=== PATIENT | male | born 1955 | race Caucasian/White ===

== ENCOUNTER 2023-05-07 08:21 | Emergency (ER) | payer OTHER, SELFPAY ==
[2023-05-07 08:38] VITALS: BP 136/73
[2023-05-07 09:08] LABS: Urine Albumin Negative (Neg - Trace); Urine Bilirubin Negative (Negative); Urine Character Clear (Clear); Urine Color Yellow; Urine Glucose Negative (Negative); Urine Ketone Negative (Negative); Urine Leukocyte Negative (Negative); Urine Nitrite Negative (Negative); Urine Occult Blood Negative (Negative); Urine Urobilinogen Negative (Neg - 1+)
[2023-05-07] MEDS: MOTRIN 600 MG PO (11:32)
[2023-05-07] MEDS: LIDOCAINE 4% PATCH 1 PATCH TOPICAL (11:32)
--- NOTE | 2023-05-07 11:43 | ED.GENMED ---
History of Present Illness
General
Chief Complaint: Musculo-Skeletal Complaint
Source: patient and spouse
Time Seen by Provider: 05/07/23 11:01
Travel History
Have you had any contact with someone who has COVID-19?: No
Do you have any symptoms of coronavirus? Fever > 100 degrees, chills, cough, shortness of breath, sore throat, loss of taste or smell, muscle aches, or headache?: No
History of Present Illness
History of Present Illness:
68-year-old male with past medical history of hypertension, hyperlipidemia, diabetes, newly diagnosed metastatic colon cancer (discharged from this hospital on 30 April) presenting to the emergency department for evaluation after he fell down
approximately 2 steps 2 days ago onto the kitchen floor injuring the left posterolateral rib area, has been attempting to deal with pain at home but this morning felt pain was too significant so decided to come to the ER for further evaluation.
Patient has arranged follow-up for his newly diagnosed cancer this coming week and has been taking his oxycodone as prescribed to him upon discharge but states pain still was bothering him. He denies any other injuries including head injury,
headache, extremity related concerns, use of anticoagulants or any other concerns at this time.
Past History
Past History
ED Past Medical History: Cancer, CVA, HTN, Hypercholesterolemia and NIDDM
ED Past Surgical History: Appendectomy, Orthopedic, Tonsilectomy and Other (Bilateral knee arthroscopies in the past )
Social History
Tobacco: Other (Occasional cigar smoker)
Alcohol: Occasional
Drug: None
Personal:
Living: with family
Employment: Employed
Family History
Family History: Early CAD (Patient's father and mother both of coronary artery disease ); Negative Diabetes, Hypertension, Asthma, Cancer or Sudden
Review of Systems
Review of Systems
All Other Systems: ROS reviewed and negative except as documented in HPI and ROS
Phy Exam
Physical Exam
Physical Exam:
GENERAL: Alert , in no apparent distress at rest but appears uncomfortable with any attempted movement
Head: Normocephalic atraumatic
EYE: Clear conjunctiva
NECK: Supple
ENT: o/p clr, mmm.
CARDIAC: Regular rate and rhythm .
LUNGS: Clear breath sounds bilaterally, no acute respiratory distress, no wheezes/rales/rhonchi
ABDOMEN: Soft, without focal tenderness, no r/g, no cvat, stating he feels pain within the lower portion of his abdomen however no focal tenderness
Back: Patient does have pretty significant amount of tenderness around the eighth and ninth posterolateral rib area but without any overlying ecchymosis or breaks in the skin
NEUROLOGICAL: Alert and oriented
SKIN: Warm and dry, skin intact.
MUSCULOSKELETAL: well perfused.
PSYCH: Normal and appropriate interaction.
Scores
Heart Failure Risk
Heart Failure Risk Score: Not Applicable
Heart Score for Chest Pain Patients
STEMI patient?: Not applicable
Withdrawal Assessment of Alcohol
Withdrawal Assessment Completed?: Not applicable
Course
Orders/Labs/Results
Orders:
Orders
05/07/23 08:46
Urinalysis Reflex To Culture Urgent
Date Specimen was Collected: 05/07/23
Time Specimen was Collected: 08:42
05/07/23 11:17
Ibuprofen [Motrin] 600 mg PO NOW STA
Lidocaine [Lidocaine 4% Patch] 1 patch TOPICAL NOW STA
CR Ribs-left 3 Vw W/pa Chest Urgent
Comment:
Reason For Exam: fall 2 days ago, posterior rib pain around 8-10
05/07/23 12:14
CT Chest/abd/pel W Iv Cont Urgent
Reason For Exam: fall, left rib pain, multiple fx on XR
05/07/23 13:41
Basic Metabolic Panel Urgent
Complete Blood Count/With Diff Urgent
05/07/23 14:00
Morphine Sulfate 4 mg IV NOW STA
05/07/23 15:06
Morphine Sulfate 2 mg IV NOW STA
Abnormal Lab Results
05/07/23
13:41
RBC 4.02 L 10^6/uL
(4.70-6.10)
Hgb 9.0 L g/dL
(13.0-18.0)
Hct 27.9 L %
(39.0-52.0)
MCV 69.4 L fL
(80.0-94.0)
MCH 22.4 L pg
(27.0-31.0)
MCHC 32.3 L g/dL
(33.0-37.0)
RDW 19.8 H %
(11.5-14.5)
Abs Immat Gran (auto) 0.1 H 10^3/uL
(0-0.05)
Absolute Neuts (auto) 7.3 H 10^3/uL
(1.4-6.5)
Absolute Monos (auto) 0.8 H 10^3/uL
(0.1-0.6)
Neutrophils % 76.5 H %
(42.2-75.2)
Lymphocytes % 12.7 L %
(20.5-51.1)
Sodium 130 L mmol/L
(135-145)
Glucose 201 H mg/dl
(70-99)
05/07/23 13:41
05/07/23 13:41
Vital Signs
Initial and Last Documented VS:
Initial Vital Signs
Temp Pulse Resp BP Pulse Ox
98.1 F 93 20 136/73 97
05/07/23 08:38 05/07/23 08:38 05/07/23 08:38 05/07/23 08:38 05/07/23 08:38
Last Documented Vital Signs
Temp Pulse Resp BP Pulse Ox
98.1 F 66 18 138/63 96
05/07/23 08:38 05/07/23 15:31 05/07/23 15:31 05/07/23 15:31 05/07/23 15:31
MDM/Problems Addressed
Differential Diagnosis Includes:
Rib contusion/fracture, muscle strain, pneumothorax, less concern for visceral injury given stability 2 days following fall
MDM/Problems Addressed:
68-year-old male present emergency department for evaluation of an accidental fall down 2 steps 2 days ago with left flank pain. A urinalysis was ordered from triage and does not reveal any hematuria so I am less suspicious for any significant
kidney injury. Will obtain an x-ray to rule out fracture given the tenderness. Patient already took an oxycodone prior to arrival. Will treat with additional anti-inflammatory and topical lidocaine patch. Reassessment following
*Radiology
Radiology exam reviewed: preliminary read by ED provider (Concern for fractures to ribs 8 9 and 10)
*Pulse Oximetry
Patient hypoxic: no
*Critical Care Note
Total Time (30-74mins, 75-104mins- exclusive of procedures): Not Applicable
Data Reviewed
Review of Other/Old Records Reveals: Labs, Radiology Studies and Discharge Summary
Source: patient
Comment
Comment:
05/07/2023 1256 PM: Patient's rib series shows fractures of the left ribs 8 9 and 10. Given this I added on a CT of the chest abdomen and pelvis. Disposition reassessment following
05-07-2023, 1358 PM: Patient requesting pain medication. 4 mg of morphine ordered for pain control.
Patient Management
Escalation/DeEscalation of care consider admission/obs:
Patient CT scans do show left ninth 10th and 11th rib fractures. Metastatic disease as described within the reports is overall unchanged. Following second dose of pain medication patient notes that he would prefer to be discharged home as opposed
to being admitted. He does have Percocet at home to take as needed for pain. He has to follow-up visit scheduled this coming week for his cancer. Patient will be provided with an incentive spirometer to go home with and was counseled on how to
use this. He is aware of return precautions and follow-up recommendations.
ED Attending Note
-
Portions of this chart may have been created with voice recognition software.� Occasional wrong word or��sound alike� substitutions may have occurred due to the inherent limitations of voice recognition software.
Discharge Plan
Departure
Patient Disposition: Home (Routine Discharge)
Date of Disposition: 05/07/23
Time of Disposition: 15:44
Patient with high blood pressure during this ER visit?: No
Discharge Problem:
fracture left rib multiple, Metastatic colon cancer to liver
Instructions: Rib Fracture (DC)
Prescriptions:
No Action
Fish Oil-Vit D3 1 EACH tablet,chewable
1 tab PO DAILY
lisinopril 20 MG tablet
20 mg PO DAILY Qty: 30 0RF
cyanocobalamin (vitamin B-12) 1,000 MCG tablet
1,000 mcg PO DAILY Qty: 30 0RF
simvastatin 10 mg Tablet
10 mg PO DAILY
aspirin 81 mg Tablet,Delayed Release (Dr/Ec)
81 mg PO DAILY
Janumet 50-1,000 mg Tablet
1 tab PO DAILY
Patient Comments:
04/27/2023, although this medication is prescribed BID, pt. states that he takes only one tablet once a day in the morning.
oxycodone-acetaminophen 5-325 mg Tablet
1 tab PO Q4HPRN PRN (Reason: moderate pain) Qty: 30 0RF
ferrous sulfate 325 mg (65 mg iron) tablet
325 mg PO Q OTHER DAY Qty: 30 0RF
polyethylene glycol 3350 17 gram/dose powder
17 g PO DAILY Qty: 510 0RF
Referrals:
Norma Buckley PA-C [Family Provider] -
Interventions
Interventions:
*Risk Screen - Suicide Last Done: 05/07/23 11:28
*General Assessment Last Done: 05/07/23 11:28
*Neglect/Abuse Screening Last Done: 05/07/23 11:28
ED- Fall Risk Assessment Last Done: 05/07/23 11:28
*ED COVID-19 Vaccine History Last Done: 05/07/23 11:28
ED-Musculoskeletal Assessment Last Done: 05/07/23 11:28
[2023-05-07 12:25] VITALS: BMI 26.8
[2023-05-07 13:52] LABS: % Basophils 0.7 % (0-2); % Eosinophils 1.5 % (0-6); % Immature Granulocytes 0.5 % (0-0.5); % Lymphocytes 12.7 % (20.5-51.1); % Monocytes 8.1 % (1.7-9.3); % Neutrophils 76.5 % (42.2-75.2); Absolute Basophils 0.1 10^3/uL (0-0.2); Absolute Eosinophils 0.1 10^3/uL (0-0.7); Absolute Immature Granulocytes 0.1 10^3/uL (0-0.05); Absolute Lymphocytes 1.2 10^3/uL (1.2-3.4); Absolute Monocytes 0.8 10^3/uL (0.1-0.6); Absolute Neutrophils 7.3 10^3/uL (1.4-6.5); Hematocrit 27.9 % (39.0-52.0); Mean Corp Hgb Conc. 32.3 g/dL (33.0-37.0); Mean Corpuscular Hgb 22.4 pg (27.0-31.0); Mean Corpuscular Volume 69.4 fL (80.0-94.0); Mean Platelet Volume 9.6 fL (7.4-10.4); Nucleated Red Blood Cells % 0 % (-); Platelet Count 291 10^3/uL (130-400); Red Blood Cell Count 4.02 10^6/uL (4.70-6.10); Red Cell Dist. Width 19.8 % (11.5-14.5); White Blood Cell Count 9.6 10^3/uL (4.8-10.8)
[2023-05-07 14:07] LABS: Blood Urea Nitrogen 17 mg/dl (9-20); Calcium 8.9 mg/dl (8.4-10.2); Carbon Dioxide 24 mmol/L (22-30); Chloride 102 mmol/L (98-107); Estimated Creatinine Clearance 87 ml/min; Glucose 201 mg/dl (70-99); Sodium 130 mmol/L (135-145); eGFR > 60.00
[2023-05-07] MEDS: MORPHINE SULFATE 4 MG IV (14:13)
[2023-05-07] MEDS: MORPHINE SULFATE 2 MG IV (15:27)
[2023-05-07 15:31] VITALS: BP 138/63
--- NOTE | 2023-05-07 16:04 | EDRN ---
Reviewed discharge instructions with patient. Verbalized understanding. Patient demonstrated proper technique with using incentive spirometer.
[2023-05-07 16:05] VITALS: BP 138/63
== END 2023-05-07 16:06 | disposition home or self-care (01) ==
LOC: EMR 08:21
PROVIDERS: Emergency Medicine; EMERGENCY PHYSICIAN Emergency Medicine; FAMILY PHYSICIAN Physician Assistant
DX: S22.42XA Multiple fractures of ribs, left side, initial encounter for closed fracture (principal); W10.9XXA Fall (on) (from) unspecified stairs and steps, initial encounter; C18.9 Malignant neoplasm of colon, unspecified; C78.7 Secondary malignant neoplasm of liver and intrahepatic bile duct; I10 Essential (primary) hypertension; E11.9 Type 2 diabetes mellitus without complications; E78.00 Pure hypercholesterolemia, unspecified; F17.290 Nicotine dependence, other tobacco product, uncomplicated; Z86.73 Personal history of transient ischemic attack (TIA), and cerebral infarction without residual deficits; Z79.82 Long term (current) use of aspirin
CPT/HCPCS: 99284; 96374; 96376; 71101; 71260; 74177; 80048; 81003; 85025; Q9967

== ENCOUNTER 2023-05-22 11:05 | Emergency (ER) | payer OTHER, SELFPAY ==
[2023-05-22 11:11] VITALS: BP 111/70
[2023-05-22 11:33] LABS: % Basophils 0.6 % (0-2); % Eosinophils 1.4 % (0-6); % Immature Granulocytes 0.4 % (0-0.5); % Lymphocytes 7.4 % (20.5-51.1); % Monocytes 6.2 % (1.7-9.3); Absolute Basophils 0.1 10^3/uL (0-0.2); Absolute Eosinophils 0.2 10^3/uL (0-0.7); Absolute Lymphocytes 0.8 10^3/uL (1.2-3.4); Absolute Monocytes 0.7 10^3/uL (0.1-0.6); Absolute Neutrophils 9.5 10^3/uL (1.4-6.5); Hematocrit 29.5 % (39.0-52.0); Hemoglobin 9.7 g/dL (13.0-18.0); Mean Corp Hgb Conc. 32.9 g/dL (33.0-37.0); Mean Corpuscular Hgb 22.7 pg (27.0-31.0); Mean Corpuscular Volume 68.9 fL (80.0-94.0); Mean Platelet Volume 9.3 fL (7.4-10.4); Nucleated Red Blood Cells % 0 % (-); Platelet Count 289 10^3/uL (130-400); Red Blood Cell Count 4.28 10^6/uL (4.70-6.10); Red Cell Dist. Width 20.9 % (11.5-14.5); White Blood Cell Count 11.3 10^3/uL (4.8-10.8)
[2023-05-22 11:42] LABS: Lactic Acid 1.6 mmol/L (0.7-2.0)
[2023-05-22 11:43] LABS: ALT (SGPT) 45 U/L (0-50); AST (SGOT) 110 U/L (17-59); Albumin 3.7 g/dl (3.5-5.0); Alkaline Phosphatase 322 U/L (38-126); Blood Urea Nitrogen 13 mg/dl (9-20); Calcium 9.3 mg/dl (8.4-10.2); Carbon Dioxide 24 mmol/L (22-30); Chloride 102 mmol/L (98-107); Glucose 180 mg/dl (70-99); Potassium 4.5 mmol/L (3.5-5.1); Sodium 132 mmol/L (135-145); Total Protein 6.5 g/dl (6.3-8.2); eGFR > 60.00
[2023-05-22 11:45] LABS: COVID-19 Antigen Positive (Negative)
[2023-05-22 11:57] VITALS: BP 155/69
[2023-05-22 12:00] VITALS: BP 149/64
--- NOTE | 2023-05-22 12:35 | ED.GENMED ---
History of Present Illness
General
Chief Complaint: Fever
Source: patient and spouse
Exam Limitations: none
Time Seen by Provider: 05/22/23 12:07
Nursing documentation reviewed up to this point in time: agreed with
Travel History
Have you had any contact with someone who has COVID-19?: No
Do you have any symptoms of coronavirus? Fever > 100 degrees, chills, cough, shortness of breath, sore throat, loss of taste or smell, muscle aches, or headache?: No
History of Present Illness
History of Present Illness:
Pt is a 68 yr old male w/ recent dx of stage 4 colon cancer presents to the ER for evaluation of fever chills that started last night. His temperature this morning was as high as 101. He does report that he had small bloody nose this morning. He
denies any cough. He denies any shortness of breath.
He is followed by Dr. Kline here at [facility] but also has an appointment with [facility] on Tuesday. He has not started treatment for his cancer yet.
Past History
Past History
ED Past Medical History: Cancer, CVA, HTN, Hypercholesterolemia and NIDDM
ED Past Surgical History: Appendectomy, Orthopedic, Tonsilectomy and Other (Bilateral knee arthroscopies in the past )
Social History
Tobacco: Other (Occasional cigar smoker)
Alcohol: Occasional
Drug: None
Personal:
Living: with family
Employment: Employed
Family History
Family History: Early CAD (Patient's father and mother both of coronary artery disease ); Negative Diabetes, Hypertension, Asthma, Cancer or Sudden
Review of Systems
Review of Systems
All Other Systems: ROS reviewed and negative except as documented in HPI and ROS
Constitutional: Reports fever and chills
Respiratory: Reports no symptoms; Denies cough or trouble breathing
Cardiac: Reports no symptoms; Denies palpitations
ABD/GI: Reports no symptoms
Musculoskeletal: Reports no symptoms
Skin: Reports no symptoms
Neurological: Reports no symptoms
Hematologic/Lymphatic: Reports no symptoms
Psychiatric: Reports no symptoms
Phy Exam
General Physical Exam
General Presentation: no apparent distress
General age: appears stated age
General Skin: warm and dry
General Habitus: normal
General Mental: alert
General Hydration: appears well hydrated
ENT Exam
ENT Exam: EOMI, neck supple and other (dried blood in left nares no active bleeding )
Cardiovascular Exam
Cardiovascular Exam: regular rate/rhythm, no murmur and normal peripheral pulses
Pulmonary Exam
Pulmonary Exam: lungs clear and no respiratory distress
Neurological Exam
Neurological Exam: alert and oriented x3
Musculoskeletal Exam
Musculoskeletal Exam: full ROM
Skin Exam
Skin Exam: normal color and warm/dry
Psychiatric Exam
Psychiatric Exam: normal mood/affect
Course
Orders/Labs/Results
Orders:
Orders
05/22/23 11:22
COVID-19 Antigen Urgent
Source: Nasal Swab
Complete Blood Count/With Diff Urgent
Comprehensive Metabolic Panel Urgent
Lactic Acid Q4H
Comment: ON ICE, CANCEL 2ND ORDER IF FIRST LACTIC ACID LEVEL <2
Blood Culture Q30M
BENJAMIN Source: Blood/Venous
Specimen Description:
Comment: FROM 2 SEPARATE SITES
Influenza A+B Rapid Molecular Urgent
BENJAMIN Source: Nasal Swab
Specimen Description:
05/22/23 11:45
Blood Culture Q30M
BENJAMIN Source: Blood/Venous
Specimen Description:
Comment: FROM 2 SEPARATE SITES
05/22/23 15:15
Lactic Acid Q4H
Comment: ON ICE, CANCEL 2ND ORDER IF FIRST LACTIC ACID LEVEL <2
Abnormal Lab Results
05/22/23
11:22
WBC 11.3 H 10^3/uL
(4.8-10.8)
RBC 4.28 L 10^6/uL
(4.70-6.10)
Hgb 9.7 L g/dL
(13.0-18.0)
Hct 29.5 L %
(39.0-52.0)
MCV 68.9 L fL
(80.0-94.0)
MCH 22.7 L pg
(27.0-31.0)
MCHC 32.9 L g/dL
(33.0-37.0)
RDW 20.9 H %
(11.5-14.5)
Absolute Neuts (auto) 9.5 H 10^3/uL
(1.4-6.5)
Absolute Lymphs (auto) 0.8 L 10^3/uL
(1.2-3.4)
Absolute Monos (auto) 0.7 H 10^3/uL
(0.1-0.6)
Neutrophils % 84.0 H %
(42.2-75.2)
Lymphocytes % 7.4 L %
(20.5-51.1)
Sodium 132 L mmol/L
(135-145)
Glucose 180 H mg/dl
(70-99)
AST 110 H U/L
(17-59)
Alkaline Phosphatase 322 H U/L
(38-126)
SARS-CoV-2 Antigen Positive A
(Negative)
05/22/23 11:22
05/22/23 11:22
Vital Signs
Initial and Last Documented VS:
Initial Vital Signs
Temp Pulse Resp BP Pulse Ox
98.8 F 107 18 111/70 97
05/22/23 11:11 05/22/23 11:11 05/22/23 11:11 05/22/23 11:11 05/22/23 11:11
Last Documented Vital Signs
Temp Pulse Resp BP Pulse Ox
98.8 F 82 17 149/64 96
05/22/23 11:11 05/22/23 12:30 05/22/23 12:30 05/22/23 12:00 05/22/23 12:30
MDM/Problems Addressed
Differential Diagnosis Includes:
not limited to : viral syndrome, COVID, influenza
MDM/Problems Addressed:
Patient complains of chills and fever was found to be COVID-positive. He denies any cough shortness of breath. He has nontoxic lungs are clear nontachycardic nontachypneic..
Patient recently diagnosed with stage IV colon cancer we had a discussion about Paxlovid. He does not wish to take. He is nontoxic and looks well stable for discharge home with supportive care.
Chronic conditions affecting care:
recent dx of stage 4 colo cancer has not started treatment yet
*Pulse Oximetry
Patient hypoxic: no
*Critical Care Note
Total Time (30-74mins, 75-104mins- exclusive of procedures): Not Applicable
ED Attending Note
-
Portions of this chart may have been created with voice recognition software.� Occasional wrong word or��sound alike� substitutions may have occurred due to the inherent limitations of voice recognition software.
Discharge Plan
Departure
Patient Disposition: Home (Routine Discharge)
Date of Disposition: 05/22/23
Time of Disposition: 13:10
Patient with high blood pressure during this ER visit?: Yes
Covid-19: Confirmed COVID-19
Discharge Problem:
COVID-19
Instructions: COVID-19 (DC)
Prescriptions:
No Action
Fish Oil-Vit D3 1 EACH tablet,chewable
1 tab PO DAILY
lisinopril 20 MG tablet
20 mg PO DAILY Qty: 30 0RF
cyanocobalamin (vitamin B-12) 1,000 MCG tablet
1,000 mcg PO DAILY Qty: 30 0RF
simvastatin 10 mg Tablet
10 mg PO DAILY
aspirin 81 mg Tablet,Delayed Release (Dr/Ec)
81 mg PO DAILY
Janumet 50-1,000 mg Tablet
1 tab PO DAILY
Patient Comments:
04/27/2023, although this medication is prescribed BID, pt. states that he takes only one tablet once a day in the morning.
oxycodone-acetaminophen 5-325 mg Tablet
1 tab PO Q4HPRN PRN (Reason: moderate pain) Qty: 30 0RF
ferrous sulfate 325 mg (65 mg iron) tablet
325 mg PO Q OTHER DAY Qty: 30 0RF
polyethylene glycol 3350 17 gram/dose powder
17 g PO DAILY Qty: 510 0RF
Referrals:
Norma Buckley PA-C [Family Provider] -
Activity Restrictions/Additional Instructions:
stay well-hydrated you may take ibuprofen as needed every hours for fever chills body aches. Follow-up with your family doctor the next several days for reevaluation of symptoms. Return if any worsening of symptoms of shortness of breath or any
further concerns
Interventions
Interventions:
ED- Neurological Assessment Last Done: 05/22/23 11:57
ED-Skin Assessment Last Done: 05/22/23 11:57
== END 2023-05-22 13:19 | disposition home or self-care (01) ==
LOC: EMR 11:05
PROVIDERS: EMERGENCY PHYSICIAN Emergency Medicine; FAMILY PHYSICIAN Physician Assistant
DX: U07.1 COVID-19 (principal); R04.0 Epistaxis; Z11.52 Encounter for screening for COVID-19; C18.9 Malignant neoplasm of colon, unspecified; I10 Essential (primary) hypertension; E78.00 Pure hypercholesterolemia, unspecified; E11.9 Type 2 diabetes mellitus without complications; F17.290 Nicotine dependence, other tobacco product, uncomplicated; Z86.73 Personal history of transient ischemic attack (TIA), and cerebral infarction without residual deficits; Z87.442 Personal history of urinary calculi; Z79.84 Long term (current) use of oral hypoglycemic drugs
CPT/HCPCS: 99283; 80053; 83605; 85025; 87040; 87502; 87811

== ENCOUNTER → 2023-05-26 10:22 | Outpatient (REF) | payer OTHER, SELFPAY ==
[2023-05-26 11:15] VITALS: BP 141/63; BP_SYST 90
[2023-05-26] MEDS: ANCEF 10 IV (11:43)
[2023-05-26 13:15] VITALS: BP 126/76
== END ==
LOC: RADI 10:22
PROVIDERS: ATTENDING PHYSICIAN Internal Medicine Hematology & Oncology; FAMILY PHYSICIAN Physician Assistant
DX: C18.9 Malignant neoplasm of colon, unspecified (principal)
CPT/HCPCS: 36561; 76937; 77001; 99152; 99153; C1788

== ENCOUNTER → 2023-06-06 14:14 | Outpatient (REF) | payer OTHER, SELFPAY ==
[2023-06-06 11:56] LABS: % Basophils 0.6 % (0-2); % Eosinophils 0.4 % (0-6); % Immature Granulocytes 13.1 % (0-0.5); % Lymphocytes 4.2 % (20.5-51.1); % Monocytes 1.1 % (1.7-9.3); % Neutrophils 80.6 % (42.2-75.2); Absolute Basophils 0.1 10^3/uL (0-0.2); Absolute Eosinophils 0.1 10^3/uL (0-0.7); Absolute Immature Granulocytes 2.8 10^3/uL (0-0.05); Absolute Lymphocytes 0.9 10^3/uL (1.2-3.4); Absolute Monocytes 0.2 10^3/uL (0.1-0.6); Absolute Neutrophils 17.4 10^3/uL (1.4-6.5); Hematocrit 26.9 % (39.0-52.0); Hemoglobin 8.8 g/dL (13.0-18.0); Mean Corp Hgb Conc. 32.7 g/dL (33.0-37.0); Mean Corpuscular Hgb 22.2 pg (27.0-31.0); Mean Corpuscular Volume 67.9 fL (80.0-94.0); Mean Platelet Volume 10.6 fL (7.4-10.4); Nucleated Red Blood Cells % 0 % (-); Platelet Count 259 10^3/uL (130-400); Red Blood Cell Count 3.96 10^6/uL (4.70-6.10); Red Cell Dist. Width 20.6 % (11.5-14.5); White Blood Cell Count 21.6 10^3/uL (4.8-10.8)
[2023-06-06 12:27] LABS: ALT (SGPT) 28 U/L (0-50); AST (SGOT) 40 U/L (17-59); Albumin 3.1 g/dl (3.5-5.0); Alkaline Phosphatase 359 U/L (38-126); Blood Urea Nitrogen 24 mg/dl (9-20); Calcium 9.2 mg/dl (8.4-10.2); Carbon Dioxide 23 mmol/L (22-30); Chloride 93 mmol/L (98-107); Glucose 289 mg/dl (70-99); Potassium 4.6 mmol/L (3.5-5.1); Sodium 127 mmol/L (135-145); Total Bilirubin 0.8 mg/dl (0.2-1.3); eGFR > 60.00
== END ==
LOC: OIDL 14:14
PROVIDERS: ATTENDING PHYSICIAN Internal Medicine Hematology & Oncology
DX: C18.9 Malignant neoplasm of colon, unspecified (principal)
CPT/HCPCS: 80053; 85025

== ENCOUNTER 2023-06-12 15:18 | Emergency (ER) | payer OTHER, SELFPAY ==
[2023-06-12] VITALS (7 sets, daily range): BP systolic 104–122; BP diastolic 52–61; BMI 23.7
[2023-06-12 16:07] LABS: % Basophils 0.9 % (0-2); % Eosinophils 0.9 % (0-6); % Immature Granulocytes 4.4 % (0-0.5); % Lymphocytes 12.4 % (20.5-51.1); % Monocytes 11.9 % (1.7-9.3); % Neutrophils 69.5 % (42.2-75.2); Absolute Basophils 0.1 10^3/uL (0-0.2); Absolute Eosinophils 0.1 10^3/uL (0-0.7); Absolute Immature Granulocytes 0.3 10^3/uL (0-0.05); Absolute Lymphocytes 0.9 10^3/uL (1.2-3.4); Absolute Monocytes 0.9 10^3/uL (0.1-0.6); Absolute Neutrophils 5.2 10^3/uL (1.4-6.5); Hemoglobin 8.7 g/dL (13.0-18.0); Mean Corp Hgb Conc. 32.2 g/dL (33.0-37.0); Mean Corpuscular Hgb 22.5 pg (27.0-31.0); Mean Corpuscular Volume 69.9 fL (80.0-94.0); Mean Platelet Volume 10.7 fL (7.4-10.4); Nucleated Red Blood Cells % 0 % (-); Platelet Count 228 10^3/uL (130-400); Red Blood Cell Count 3.86 10^6/uL (4.70-6.10); Red Cell Dist. Width 22.7 % (11.5-14.5); White Blood Cell Count 7.5 10^3/uL (4.8-10.8)
--- NOTE | 2023-06-12 16:08 | ED.GENMED ---
History of Present Illness
General
Chief Complaint: Weakness
Source: patient and spouse
Time Seen by Provider: 06/12/23 15:45
Travel History
Have you had any contact with someone who has COVID-19?: No
Do you have any symptoms of coronavirus? Fever > 100 degrees, chills, cough, shortness of breath, sore throat, loss of taste or smell, muscle aches, or headache?: No
History of Present Illness
History of Present Illness:
68-year-old male presents to the emergency room complaining of profound weakness. Patient began receiving treatment for metastatic colon cancer last week. Treatment was started at [facility]. He has been feeling progressively weak since that time.
However today the weakness was so profound he felt he could not get himself dressed. Patient denies any dysuria or frequency. In fact he has decreased urine output. He is not eating or drinking very much. Patient denies any abdominal pain.
Past History
Past History
ED Past Medical History: Cancer, CVA, HTN, Hypercholesterolemia and NIDDM
ED Past Surgical History: Appendectomy, Orthopedic, Tonsilectomy and Other (Bilateral knee arthroscopies in the past )
Social History
Tobacco: Other (Occasional cigar smoker)
Alcohol: Occasional
Drug: None
Personal:
Living: with family
Employment: Employed
Family History
Family History: Early CAD (Patient's father and mother both of coronary artery disease ); Negative Diabetes, Hypertension, Asthma, Cancer or Sudden
Phy Exam
Physical Exam
Physical Exam:
General: Awake, Alert, Oriented X3. Appears chronically ill
Vitals: Temperature 100.4 rectally
Head: Atraumatic
Eyes: Pupils equal, EOMI
Throat: Airway intact, no exudates, dry mucosa
Neck: Trachea midline
Lungs: Clear and equal b/l
Heart: Regular rate, no murmurs
Abd: Soft, Nontender, No pulsatile mass
Neuro: Nonfocal
Skin: Pale, warm, dry, no rash
Extremities: pulses equal b/l, no edema
Course
Orders/Labs/Results
Orders:
Orders
06/12/23 15:44
Complete Blood Count/With Diff Urgent
Comprehensive Metabolic Panel Urgent
06/12/23 15:45
Type+Screen Urgent
06/12/23 16:05
0.9% Sodium Chloride 1000 ml [Nss] 1,000 ml IV BOLUS
Acetaminophen [Tylenol] 650 mg PO NOW STA
CR Chest - 2 Views Urgent
Comment:
Reason For Exam: fever, mailase
06/12/23 16:34
COVID-19 Antigen Urgent
Source: Nasal Swab
Lactic Acid Q4H
Comment: CANCEL 2nd LACTIC ACID IF 1st LACTIC ACID IS LESS THAN 2
06/12/23 16:35
Blood Culture Q30M
BENJAMIN Source: Blood/Venous
Specimen Description:
Influenza A+B Rapid Molecular Urgent
BENJAMIN Source: Nasal Swab
Specimen Description:
06/12/23 16:48
Blood Culture Q30M
BENJAMIN Source: Blood/Venous
Specimen Description:
06/12/23 17:29
Urinalysis Reflex To Culture Urgent
Date Specimen was Collected: 06/12/23
Time Specimen was Collected: 17:24
Urine Microscopic Reflex Cult Urgent
Urine Culture Urgent
BENJAMIN Source: U
Specimen Description:
Date Specimen was Collected: 06/12/23
Time Specimen was Collected: 17:24
Abnormal Lab Results
06/12/23 06/12/23
15:44 17:29
RBC 3.86 L 10^6/uL
(4.70-6.10)
Hgb 8.7 L g/dL
(13.0-18.0)
Hct 27.0 L %
(39.0-52.0)
MCV 69.9 L fL
(80.0-94.0)
MCH 22.5 L pg
(27.0-31.0)
MCHC 32.2 L g/dL
(33.0-37.0)
RDW 22.7 H %
(11.5-14.5)
MPV 10.7 H fL
(7.4-10.4)
Abs Immat Gran (auto) 0.3 H 10^3/uL
(0-0.05)
Absolute Lymphs (auto) 0.9 L 10^3/uL
(1.2-3.4)
Absolute Monos (auto) 0.9 H 10^3/uL
(0.1-0.6)
Immature Gran % 4.4 H %
(0-0.5)
Lymphocytes % 12.4 L %
(20.5-51.1)
Monocytes % 11.9 H %
(1.7-9.3)
Sodium 128 L mmol/L
(135-145)
Chloride 94 L mmol/L
(98-107)
BUN 28 H mg/dl
(9-20)
Glucose 288 H mg/dl
(70-99)
Alkaline Phosphatase 280 H U/L
(38-126)
Total Protein 5.6 L g/dl
(6.3-8.2)
Albumin 3.0 L g/dl
(3.5-5.0)
Urine Ketones Trace A
(Negative)
Urine Bilirubin 1+ A
(Negative)
Leukocyte Esterase Rfl Trace A
(Negative)
Urine Bacteria (Reflex) Moderate A
(Negative)
Urine Glucose 1+ A
(Negative)
Urine Albumin (Reflex) 1+ A
(Neg - Trace)
03/03/24 15:44
06/12/23 15:44
Vital Signs
Initial and Last Documented VS:
Initial Vital Signs
Temp Pulse Resp BP Pulse Ox
97.8 F 106 18 109/61 99
06/12/23 15:25 06/12/23 15:25 06/12/23 15:25 06/12/23 15:25 06/12/23 15:25
Last Documented Vital Signs
Temp Pulse Resp BP Pulse Ox
100.4 F H 69 17 122/55 96
06/12/23 16:02 06/12/23 20:15 06/12/23 20:15 06/12/23 20:00 06/12/23 20:15
MDM/Problems Addressed
Differential Diagnosis Includes:
Renal failure, dehydration, electrolyte abnormality, infection
MDM/Problems Addressed:
Patient had borderline temperature here of 100.4 rectally. COVID and flu negative. Urine does not appear infected. Chest x-ray is unremarkable. IV fluid hydration made patient feel better. Contacted Dr. Brown who is on-call for heme-onc.
She was okay with being discharged without antibiotics as long as he looked okay which I believe he does. Patient understands to return should he feel like he is getting worse.
Chronic conditions affecting care: Cancer (Colon cancer with metastases)
*Radiology
Radiology exam reviewed: radiology read reviewed
*Pulse Oximetry
Patient hypoxic: no
*Critical Care Note
Total Time (30-74mins, 75-104mins- exclusive of procedures): Not Applicable
Patient Management
Social determinants of health affecting care: Strong social support
ED Attending Note
-
Portions of this chart may have been created with voice recognition software.� Occasional wrong word or��sound alike� substitutions may have occurred due to the inherent limitations of voice recognition software.
Discharge Plan
Departure
Patient Disposition: Home (Routine Discharge)
Date of Disposition: 06/12/23
Time of Disposition: 20:17
Patient with high blood pressure during this ER visit?: No
Condition: Good
Discharge Problem:
Dehydration
Instructions: Dehydration, Adult ED
Prescriptions:
No Action
Fish Oil-Vit D3 1 EACH tablet,chewable
1 tab PO QPM
Janumet 50-1,000 mg Tablet
1 tab PO BID
simvastatin 10 mg Tablet
10 mg PO HS
loperamide 2 mg Tablet
2 mg PO Q4H PRN (Reason: DIARRHEA)
oxycodone-acetaminophen [Percocet] 5-325 mg Tablet
1 tab PO Q4H PRN (Reason: SEVERE PAIN)
aspirin 81 mg Tablet,Chewable
81 mg PO HS
cholecalciferol (vitamin D3) [Vitamin D3] 25 mcg (1,000 unit) Tablet
25 mcg PO QPM
lisinopril 20 MG tablet
20 mg PO HS
cyanocobalamin (vitamin B-12) 1,000 MCG tablet
1,000 mcg PO QPM
ferrous sulfate 325 mg (65 mg iron) tablet
325 mg PO Q48H
ondansetron [Zofran ODT] 8 mg Tablet,Disintegrating
8 mg PO Q12H PRN (Reason: NASUEA )
Referrals:
Norma Buckley PA-C [Family Provider] -
Interventions
Interventions:
*Risk Screen - Suicide Last Done: 06/12/23 15:46
*General Assessment Last Done: 06/12/23 15:46
*Neglect/Abuse Screening Last Done: 06/12/23 15:46
ED- Fall Risk Assessment Last Done: 06/12/23 15:46
*ED COVID-19 Vaccine History Last Done: 06/12/23 15:46
*Nursing Disposition Last Done: 06/12/23 20:56
ED- Cardiac Assessment Last Done: 06/12/23 15:46
ED- Neurological Assessment Last Done: 06/12/23 15:46
ED- Pulmonary Assessment Last Done: 06/12/23 15:46
Discharge Date and Time
Discharge Date/Time: 06/12/23 20:56
[2023-06-12 16:17] LABS: ALT (SGPT) 28 U/L (0-50); AST (SGOT) 29 U/L (17-59); Alkaline Phosphatase 280 U/L (38-126); Blood Urea Nitrogen 28 mg/dl (9-20); Calcium 9.4 mg/dl (8.4-10.2); Carbon Dioxide 25 mmol/L (22-30); Chloride 94 mmol/L (98-107); Estimated Creatinine Clearance 56 ml/min; Glucose 288 mg/dl (70-99); Potassium 4.2 mmol/L (3.5-5.1); Sodium 128 mmol/L (135-145); Total Bilirubin 0.8 mg/dl (0.2-1.3); Total Protein 5.6 g/dl (6.3-8.2); eGFR > 60.00
[2023-06-12] MEDS: NSS 1000 IV (16:30)
[2023-06-12] MEDS: TYLENOL 650 MG PO (16:31)
[2023-06-12 16:52] LABS: Anisocytosis 2+; Macrocytosis 1+; Normal RBC Morphology No; Ovalocytes 1+; Polychromasia 3+; Schistocytes 1+
[2023-06-12 17:03] LABS: Lactic Acid 1.2 mmol/L (0.7-2.0)
[2023-06-12 17:06] LABS: COVID-19 Antigen Negative (Negative)
[2023-06-12 18:03] LABS: Urine Albumin 1+ (Neg - Trace); Urine Bilirubin 1+ (Negative); Urine Character Clear (Clear); Urine Color Amber; Urine Glucose 1+ (Negative); Urine Ketone Trace (Negative); Urine Leukocyte Trace (Negative); Urine Nitrite Negative (Negative); Urine Occult Blood Negative (Negative); Urine Specific Gravity 1.025 (<1.030); Urine Urobilinogen Negative (Neg - 1+)
[2023-06-12 18:36] LABS: Urine Hyaline Cast >15 /LPF (0-2); Urine Mucus Moderate
[2023-06-12 18:37] LABS: Urine Bacteria Moderate (Negative); Urine Red Blood Cell 0-2 /HPF (0-2)
--- NOTE | 2023-06-12 19:28 | EDRN ---
Report received, introduced myself to patient he ambulated to the restroom, states he does feel like slightly dizzy, informed Dr. valle about this, he will speak with patient.
== END 2023-06-12 20:56 | disposition home or self-care (01) ==
LOC: EMR 15:18
PROVIDERS: EMERGENCY PHYSICIAN Emergency Medicine; FAMILY PHYSICIAN Physician Assistant
DX: E86.0 Dehydration (principal); C18.9 Malignant neoplasm of colon, unspecified; I10 Essential (primary) hypertension; E78.00 Pure hypercholesterolemia, unspecified; E11.9 Type 2 diabetes mellitus without complications; F17.200 Nicotine dependence, unspecified, uncomplicated; Z82.49 Family history of ischemic heart disease and other diseases of the circulatory system; Z86.73 Personal history of transient ischemic attack (TIA), and cerebral infarction without residual deficits; Z90.49 Acquired absence of other specified parts of digestive tract
CPT/HCPCS: 99283; 96360; 71046; 80053; 81003; 81015; 83605; 85025; 86850; 86900; 86901; 87040; 87086; 87502; 87811

== ENCOUNTER → 2023-06-22 13:22 | Outpatient (REF) | payer OTHER, SELFPAY ==
[2023-06-22 12:17] LABS: ALT (SGPT) 16 U/L (0-50); AST (SGOT) 18 U/L (17-59); Alkaline Phosphatase 292 U/L (38-126); Blood Urea Nitrogen 16 mg/dl (9-20); Calcium 8.9 mg/dl (8.4-10.2); Carbon Dioxide 25 mmol/L (22-30); Chloride 94 mmol/L (98-107); Glucose 255 mg/dl (70-99); Sodium 126 mmol/L (135-145); Total Bilirubin 0.7 mg/dl (0.2-1.3); Total Protein 5.5 g/dl (6.3-8.2); eGFR > 60.00
[2023-06-22 12:23] LABS: % Basophils 0.5 % (0-2); % Eosinophils 0.5 % (0-6); % Lymphocytes 13.4 % (20.5-51.1); % Monocytes 3.1 % (1.7-9.3); % Neutrophils 76.5 % (42.2-75.2); Absolute Immature Granulocytes 0.2 10^3/uL (0-0.05); Absolute Lymphocytes 0.5 10^3/uL (1.2-3.4); Absolute Monocytes 0.1 10^3/uL (0.1-0.6); Absolute Neutrophils 2.9 10^3/uL (1.4-6.5); Hematocrit 27.3 % (39.0-52.0); Hemoglobin 8.8 g/dL (13.0-18.0); Mean Corp Hgb Conc. 32.2 g/dL (33.0-37.0); Mean Corpuscular Hgb 23.5 pg (27.0-31.0); Mean Platelet Volume 10.2 fL (7.4-10.4); Platelet Count 145 10^3/uL (130-400); Red Blood Cell Count 3.74 10^6/uL (4.70-6.10); Red Cell Dist. Width 23.1 % (11.5-14.5); White Blood Cell Count 3.8 10^3/uL (4.8-10.8)
== END ==
LOC: OIDL 13:22
PROVIDERS: ATTENDING PHYSICIAN Internal Medicine Hematology & Oncology
DX: C18.9 Malignant neoplasm of colon, unspecified (principal)
CPT/HCPCS: 80053; 85025

== ENCOUNTER 2023-07-05 14:17 | Outpatient (RCR) | payer OTHER, SELFPAY ==
[2023-07-05 14:38] LABS: % Basophils 0.2 % (0-2); % Eosinophils 0.2 % (0-6); % Immature Granulocytes 2.1 % (0-0.5); % Lymphocytes 5.1 % (20.5-51.1); % Neutrophils 91.4 % (42.2-75.2); Absolute Immature Granulocytes 0.2 10^3/uL (0-0.05); Absolute Lymphocytes 0.6 10^3/uL (1.2-3.4); Absolute Monocytes 0.1 10^3/uL (0.1-0.6); Absolute Neutrophils 10.2 10^3/uL (1.4-6.5); Hematocrit 30.9 % (39.0-52.0); Hemoglobin 10.3 g/dL (13.0-18.0); Mean Corp Hgb Conc. 33.3 g/dL (33.0-37.0); Mean Platelet Volume 9.5 fL (7.4-10.4); Platelet Count 192 10^3/uL (130-400); Red Blood Cell Count 4.12 10^6/uL (4.70-6.10); Red Cell Dist. Width 25.5 % (11.5-14.5); White Blood Cell Count 11.2 10^3/uL (4.8-10.8)
[2023-07-05 15:42] LABS: ALT (SGPT) 16 U/L (0-50); AST (SGOT) 21 U/L (17-59); Albumin 3.4 g/dl (3.5-5.0); Alkaline Phosphatase 256 U/L (38-126); Blood Urea Nitrogen 18 mg/dl (9-20); Calcium 9.1 mg/dl (8.4-10.2); Carbon Dioxide 23 mmol/L (22-30); Chloride 98 mmol/L (98-107); Glucose 241 mg/dl (70-99); Magnesium 2.2 mg/dl (1.6-2.3); Potassium 4.1 mmol/L (3.5-5.1); Sodium 126 mmol/L (135-145); Total Bilirubin 0.8 mg/dl (0.2-1.3); Total Protein 5.6 g/dl (6.3-8.2); eGFR > 60.00
== END 2023-07-10 23:59 | disposition home or self-care (01) ==
LOC: OID 14:17
PROVIDERS: ATTENDING PHYSICIAN Internal Medicine Hematology & Oncology
DX: C18.2 Malignant neoplasm of ascending colon (principal); R59.0 Localized enlarged lymph nodes; C18.9 Malignant neoplasm of colon, unspecified
CPT/HCPCS: 80053; 83735; 85025

== ENCOUNTER 2023-07-10 15:50 | Inpatient (IN) | payer OTHER, SELFPAY ==
[2023-07-10] VITALS (9 sets, daily range): BP systolic 97–139; BP diastolic 56–68
[2023-07-10] MEDS: ZOFRAN 4 MG IV (12:29)
[2023-07-10] MEDS: DILAUDID 1 MG IV (12:29)
[2023-07-10] MEDS: NSS 1000 IV ×2 (12:30→19:37)
[2023-07-10 12:51] LABS: Hematocrit 31.8 % (39.0-52.0); Hemoglobin 10.3 g/dL (13.0-18.0); Mean Corp Hgb Conc. 32.4 g/dL (33.0-37.0); Mean Corpuscular Hgb 24.2 pg (27.0-31.0); Mean Corpuscular Volume 74.8 fL (80.0-94.0); Nucleated Red Blood Cells % 0 % (-); Red Blood Cell Count 4.25 10^6/uL (4.70-6.10); Red Cell Dist. Width 25.8 % (11.5-14.5); White Blood Cell Count 3.8 10^3/uL (4.8-10.8)
[2023-07-10 12:55] LABS: APTT 29.9 Sec (23.4-35.0); INR 1.24; PT 15.4 Sec (11.4-14.6)
[2023-07-10 12:56] LABS: ALT (SGPT) 14 U/L (0-50); AST (SGOT) 16 U/L (17-59); Alkaline Phosphatase 155 U/L (38-126); Blood Urea Nitrogen 18 mg/dl (9-20); Calcium 9.5 mg/dl (8.4-10.2); Carbon Dioxide 22 mmol/L (22-30); Chloride 101 mmol/L (98-107); Glucose 172 mg/dl (70-99); Lipase 23 U/L (23-300); Potassium 3.9 mmol/L (3.5-5.1); Sodium 129 mmol/L (135-145); Total Bilirubin 0.6 mg/dl (0.2-1.3); Total Protein 5.2 g/dl (6.3-8.2); eGFR > 60.00
--- NOTE | 2023-07-10 13:42 | ED.GENMED ---
History of Present Illness
General
Chief Complaint: Failure to Thrive
Source: patient, records, spouse and family
Exam Limitations: none
Time Seen by Provider: 07/10/23 10:50
Nursing documentation reviewed up to this point in time: agreed with
Travel History
Have you had any contact with someone who has COVID-19?: No
Do you have any symptoms of coronavirus? Fever > 100 degrees, chills, cough, shortness of breath, sore throat, loss of taste or smell, muscle aches, or headache?: No
History of Present Illness
History of Present Illness:
Patient is a 68-year-old male who presents to the emergency department complaining of chest and abdominal pain with an inability to take orally with nausea and chronic diarrhea. Patient was diagnosed with an aggressive form of colon cancer which is
stage IV in April of this year. Patient is being treated partially at [facility] and here. Patient denies fever or chills but is very very weak. Patient's and daughter state that he is confused and lethargic. Patient has not had a
fever but is been chilled. Patient states it hurts to breathe or swallow in his chest. Patient denies feeling short of breath. Patient has lost a significant is amount of weight and is not eating. Patient has a history of hypertension, elevated
cholesterol and diabetes as well as having a TIA. Patient does have a port. Question of entering hospice and discussing end-of-life issues.
Past History
Past History
ED Past Medical History: Cancer, CVA, HTN, Hypercholesterolemia and NIDDM
ED Past Surgical History: Appendectomy, Orthopedic, Tonsilectomy and Other (Bilateral knee arthroscopies in the past )
Social History
Tobacco: Other (Occasional cigar smoker)
Alcohol: Occasional
Drug: Marijuana (Medical)
Personal:
Living: with family
Employment: Employed
Family History
Family History: Early CAD (Patient's father and mother both of coronary artery disease ); Negative Diabetes, Hypertension, Asthma, Cancer or Sudden
Review of Systems
Review of Systems
All Other Systems: ROS reviewed and negative except as documented in HPI and ROS
Constitutional: Reports weight loss, fatigue and chills
EENT: Reports no symptoms
Respiratory: Denies trouble breathing
Cardiac: Reports chest pain
ABD/GI: Reports abdominal pain, nausea, diarrhea and anorexia; Denies vomiting
: Reports no symptoms
Musculoskeletal: Reports no symptoms
Skin: Reports no symptoms
Neurological: Reports no symptoms
Hematologic/Lymphatic: Reports no symptoms
Phy Exam
Physical Exam
Physical Exam:
Physical Exam
General: moderate distress, alert and appropriate, cachectic with dry mucous membranes
HENT: Normocephalic, supple with no lymphadenopathy, no thyromegaly
Eyes: Clear sclera, conjuctiva without injection
Heart: Regular rhythm and rate. No S3, S4. No murmur. No NVD
Lungs: No respiratory distress, no stridor, lung sounds clear and equal bilaterally, chest wall symmetrical and reproducible tenderness
Abdomen: Soft, diffuse tenderness without guarding or rebound, o CVA tenderness, BS good
Neuro: Alert and usual mental status, CN II - XII intact, no motor focality
Skin: no rash
Psychiatric: well kept. interactive and cooperative
Extremities: No edema, cyanosis, tenderness
Course
Orders/Labs/Results
Orders:
Orders
07/10/23 09:53
Electrocardiogram (*1) Urgent
Reason for Study: Chest Pain
EKG- Treatment ONCE
07/10/23 11:08
CT Chest/abd/pel W Iv Cont Urgent
Comment:
Reason For Exam: stage 4 colon ca and needing a repeat scan
0.9% Sodium Chloride 1000 ml [Nss] 1,000 ml IV BOLUS
HYDROmorphone [Dilaudid] 1 mg IV NOW STA
Ondansetron Injectable [Zofran] 4 mg IV NOW STA
07/10/23 11:09
Urinalysis Reflex To Culture Urgent
Date Specimen was Collected: 07/10/23
Time Specimen was Collected: 11:29
07/10/23 12:28
Complete Blood Count/With Diff Urgent
Comprehensive Metabolic Panel Urgent
Lipase Urgent
PTT Urgent
Prothrombin Time Urgent
Abnormal Lab Results
07/10/23
12:28
WBC 3.8 L 10^3/uL
(4.8-10.8)
RBC 4.25 L 10^6/uL
(4.70-6.10)
Hgb 10.3 L g/dL
(13.0-18.0)
Hct 31.8 L %
(39.0-52.0)
MCV 74.8 L fL
(80.0-94.0)
MCH 24.2 L pg
(27.0-31.0)
MCHC 32.4 L g/dL
(33.0-37.0)
RDW 25.8 H %
(11.5-14.5)
PT 15.4 H Sec
(11.4-14.6)
Sodium 129 L mmol/L
(135-145)
Glucose 172 H mg/dl
(70-99)
AST 16 L U/L
(17-59)
Alkaline Phosphatase 155 H U/L
(38-126)
Total Protein 5.2 L g/dl
(6.3-8.2)
Albumin 3.0 L g/dl
(3.5-5.0)
07/10/23 12:28
07/10/23 12:28
Vital Signs
Initial and Last Documented VS:
Initial Vital Signs
Temp Pulse Resp BP Pulse Ox
97.5 F 122 18 97/68 98
07/10/23 10:00 07/10/23 10:00 07/10/23 10:00 07/10/23 10:00 07/10/23 10:00
Last Documented Vital Signs
Temp Pulse Resp BP Pulse Ox
97.5 F 78 16 106/61 98
07/10/23 10:00 07/10/23 12:43 07/10/23 12:43 07/10/23 12:43 07/10/23 12:45
*Pulse Oximetry
Patient hypoxic: no
*EKG
Interpreted by ED Provider?: Yes
EKG Intrepretation Date: 07/10/23
EKG Intrepretation Time: 14:08
Interpretation: abnormal
Comparison EKG: no changes
Heart Rate: 107
Rate: tachycardiac
Rhythm: sinus
[place]: normal axis
Interval: normal interval
QRS Pattern: normal QRS
Ischemia: non-specific ST changes
*Singing Teacher Interpretation
Rate: tachycardiac
Interpretation: abnormal
Heart Rate: 107
Rhythm: sinus
*Critical Care Note
Total Time (30-74mins, 75-104mins- exclusive of procedures): Not Applicable
Update Note
Update Note:
Given the patient's lack of oral intake and dehydration clinically I anticipate the patient being admitted. I discussed with the patient's daughter about hospice and believe this is a realistic option for them
ED Attending Note
-
Portions of this chart may have been created with voice recognition software.� Occasional wrong word or��sound alike� substitutions may have occurred due to the inherent limitations of voice recognition software.
Discharge Plan
Departure
Patient Disposition: Admit
Date of Disposition: 07/10/23
Time of Disposition: 14:09
Admit to: Med/Surg
Admit to doctor: Hospitalist
Presentation/result/management discussed w/ accepting MD/DO: Oncology
Patient with high blood pressure during this ER visit?: No
Condition: Serious
Covid-19: Not Applicable
Discharge Problem:
Adult failure to thrive, Dehydration with hyponatremia, History of colon cancer, stage IV
Prescriptions:
No Action
Fish Oil-Vit D3 1 EACH tablet,chewable
1 tab PO QPM
Janumet 50-1,000 mg Tablet
1 tab PO BID
simvastatin 10 mg Tablet
10 mg PO HS
loperamide 2 mg Tablet
2 mg PO Q4H PRN (Reason: DIARRHEA)
oxycodone-acetaminophen [Percocet] 5-325 mg Tablet
1 tab PO Q4H PRN (Reason: SEVERE PAIN)
aspirin 81 mg Tablet,Chewable
81 mg PO HS
cholecalciferol (vitamin D3) [Vitamin D3] 25 mcg (1,000 unit) Tablet
25 mcg PO QPM
lisinopril 20 MG tablet
20 mg PO HS
cyanocobalamin (vitamin B-12) 1,000 MCG tablet
1,000 mcg PO QPM
ferrous sulfate 325 mg (65 mg iron) tablet
325 mg PO Q48H
ondansetron [Zofran ODT] 8 mg Tablet,Disintegrating
8 mg PO Q12H PRN (Reason: NASUEA )
Referrals:
Carin Kline DO [Family Provider] -
Interventions
Interventions:
*Risk Screen - Suicide Last Done: 07/10/23 12:38
*General Assessment Last Done: 07/10/23 12:38
*Neglect/Abuse Screening Last Done: 07/10/23 12:38
ED- Fall Risk Assessment Last Done: 07/10/23 12:38
*ED COVID-19 Vaccine History Last Done: 07/10/23 12:38
Discharge Date and Time
Print Language: LUXEMBOURGISH
[2023-07-10 14:11] LABS: Absolute Neutrophils -Man Diff 2.3 10^3/uL (1.4-6.5); Atypical Lymphocytes 1 %; Band Neutrophils 14 % (0-3); Lymphocytes 15 % (20-51); Metamyelocytes 4 % (-); Monocytes 16 % (2-9); Myelocytes 3 % (-); Segmented Neutrophils 47 % (42-75)
[2023-07-10 14:12] LABS: Normal RBC Morphology No; Platelets Checked YES
[2023-07-10 14:13] LABS: Hypochromasia Slight; Ovalocytes FEW
[2023-07-10 14:14] LABS: Tear Drop Red Blood Cells FEW; Total Cells Counted 100
[2023-07-10] MEDS: DILAUDID 0.5 MG IV ×2 (14:57→20:30)
[2023-07-10] MEDS: NSS 500 IV (15:05)
--- NOTE | 2023-07-10 15:38 | HPS.HSE ---
Addendum entered and electronically signed by Kike Romo MD 07/10/23 16:17:
QTc currently acceptable. Monitor QTc on fluconazole and zofran.
Original Note:
Family Physician
-
Family Physician: Carin Kline, DO
Chief Complaint
-
Failure to thrive, dehydration, abdominal pain, diarrhea
History of Present Illness
68-year-old male with past medical history of recently diagnosed metastatic colon cancer, CVA, hypertension, hyperlipidemia, [id number] diabetes mellitus came to the hospital with ongoing abdominal pain and diarrhea. Majority of the
history was taken from spouse at bedside. Patient has been undergoing aggressive chemotherapy and has finished 3 rounds of chemo. Follows up with Dr. Kline outpatient. Patient also follows up at [facility]. Per spouse patient has been
having abdominal pain, dysphagia and diarrhea which is progressively gotten worse. It is worse to the point where patient has lost minimal weight and is not eating. Currently patient denies any shortness of breath.
Medical History
Past Medical History
Past Medical History: Reports Cancer (colon with mets), CVA, HTN and NIDDM
Past Surgical History: Reports Appendectomy and Orthopedic
Social History
Tobacco: Non-smoker
Alcohol: Occasional
Drug: Marijuana (medical)
Family History
Family History: Not pertinent
Allergies / Home Medications
Allergies reflects when Allergies were last updated in [facility].
Home Medications with original date entered in [facility]
Allergy/Medication List:
Allergies
Allergy/AdvReac Type Severity Reaction Status Date / Time
No Known Allergies Allergy Verified 05/07/23 08:38
Home Medications
omega-3-dha 29 mg-epa 6 mg-fish oil 133 mg-vit D3 100 unit chew tablet (Fish Oil-Vit D3) 1 tab PO QPM Supplement 08/04/21
sitagliptin phosphate 50 mg-metformin 1,000 mg tablet (Janumet) 1 tab PO BID Diabetes 04/27/23
simvastatin 10 mg tablet 10 mg PO HS 05/25/23
aspirin 81 mg chewable tablet 81 mg PO HS 06/12/23
cyanocobalamin (vitamin B-12) 1,000 mcg tablet 1,000 mcg PO QPM 06/12/23
lisinopril 20 mg tablet 20 mg PO HS 06/12/23
loperamide 2 mg tablet 2 mg PO Q4H PRN DIARRHEA 06/12/23
ondansetron 8 mg disintegrating tablet 8 mg PO [id number] PRN NASUEA 06/12/23
Medical Marjiuana 1 gummy PO DAILY 07/10/23
cholestyramine-aspartame 4 gram oral powder (Cholestyramine Light) 4 g PO DAILY 07/10/23
diphenoxylate-atropine 2.5 mg-0.025 mg tablet (Lomotil) 1 tab PO TIDPRN PRN diarrhea 07/10/23
lorazepam 0.5 mg tablet 0.5 mg PO BIDPRN PRN anxiety 07/10/23
Review of Systems
-
History Source: Patient
A 12 point ROS was completed and negative except as noted: Yes
Abdomen/GI: Reports Abdominal Pain, Nausea and Diarrhea
Physical Exam
Vital Signs
Vital Signs
Temp Pulse Resp BP Pulse Ox
97.5 F 78 16 117/60 97
07/10/23 10:00 07/10/23 12:43 07/10/23 12:43 07/10/23 13:00 07/10/23 13:30
Physical Exam
General: No Apparent Distress and Appears Chronically Ill
HEENT: Anicteric and Moist mucous membranes
Respiratory: Clear and Non Labored Respirations; No Wheezes
Cardiac: S1/S2, Regular Rhythm and Other (Right chest wall port)
Breast: Deferred by me
GI: Soft, Non Tender and Non Distended
Rectal: Deferred by Provider
Genito-urinary: No Bar
Musculoskeletal: No Edema
Neuro: Awake, Alert, Oriented and AO x 3
Psych: Calm and Intact Judgment/Insight
Laboratory Results
-
07/10/23 12:
07/10/23 12:
Laboratory Results
PT 15.4 Sec (11.4-14.6) H 07/10/23 12:
INR 1.24 07/10/23 12:
APTT 29.9 Sec (23.4-35.0) 07/10/23 12:
Total Bilirubin 0.6 mg/dl (0.2-1.3) 07/10/23 12:
AST 16 U/L (17-59) L 07/10/23:
ALT 14 U/L (0-50) 07/10/23 12:
Alkaline Phosphatase 155 U/L (38-126) H 07/10/23:
Lipase 23 U/L (23-300) 07/10/23 12:
Data Reviewed
-
CT Scan: Report Reviewed by me, Discussed with Patient and Discussed with Family
Lab Data: Labs Reviewed by me, Discussed with Patient and Discussed with Family
Impression/Plan
-
Abdominal pain, diarrhea likely secondary to pancolitis
Could be secondary to chemo
Check stool studies
Consult GI
N.p.o. for now
IVF
pain control
Dysphagia likely secondary to candidal esophagitis
Denies Odynophagia
Thrush on exam
Nystatin
IV fluconazole
GI evaluated
speech consult
Failure to thrive, dehydration
will see how patient does with medical treatment
Gets intermittent fluids outpatient
Mild chest discomfort, suspect secondary esophagitis
Will trend Trop
monitor
Mild hyponatremia
monitor
Metastatic colon cancer
Recently diagnosed in April
Currently on chemo, follows with Dr. Kline and [facility]
Oncology consulted
Essential hypertension
Continue lisinopril
Diabetes mellitus
check A1c
ISS;accuchecks
hold janumet
History of TIA
Currently without any deficits
On aspirin
DVT prophylaxis
Lovenox
Full code, confirmed on admission
Discussed with spouse at bedside
I spent a total of 77 minutes with the patient or on the floor. More than 50% of this time involved counseling and coordination of care.
[2023-07-10] MEDS: DIFLUCAN 400 MG 200 IV (16:45)
[2023-07-10 17:16] LABS: Troponin I < 0.012 ng/ml
[2023-07-10] MEDS: MYCOSTATIN ORAL SUSPENSION 5 ML PO (19:51)
[2023-07-10] MEDS: LOVENOX 40 MG SC (19:51)
[2023-07-10 19:54] LABS: Glucose - Point of Care 117 mg/dl (70-99)
[2023-07-10] MEDS: VITAMIN B-12 1000 MCG PO (20:07)
[2023-07-10] MEDS: MYCOSTATIN ORAL SUSPENSION PO (21:17)
[2023-07-10] MEDS: LIPITOR 10 MG PO (21:17)
[2023-07-10] MEDS: LOW STRENGTH ASPIRIN 81 MG PO (21:17)
[2023-07-10 23:19] LABS: Troponin I < 0.012 ng/ml
[2023-07-10 23:26] LABS: Glucose - Point of Care 119 mg/dl (70-99)
--- NOTE | 2023-07-11 00:15 | PTCARENOTE ---
VSS. AAOx3, anxious at times. pt has been having green liquid stool, sample send. c/o abd pain. See MAR. Rectal trumpet in place. NSR to SB in the monitor. Hyperactive bowel sounds. Lungs are clear and diminished at the bases, saO2 95%RA. shallow
breathing. Dry nonproductive cough. pt appears comfortable in bed and call charles within reach.
[2023-07-11] MEDS: ATIVAN 0.5 MG PO (01:29)
[2023-07-11] MEDS: DILAUDID 0.5 MG IV ×4 (01:30→20:56)
[2023-07-11 03:05] VITALS: BP 118/53
[2023-07-11 05:03] VITALS: BMI 20.1
[2023-07-11 05:10] LABS: Glucose - Point of Care 114 mg/dl (70-99)
[2023-07-11 05:16] LABS: Hematocrit 27.7 % (39.0-52.0); Mean Corp Hgb Conc. 32.5 g/dL (33.0-37.0); Mean Corpuscular Hgb 24.7 pg (27.0-31.0); Mean Corpuscular Volume 76.1 fL (80.0-94.0); Platelet Count 118 10^3/uL (130-400); Red Blood Cell Count 3.64 10^6/uL (4.70-6.10); Red Cell Dist. Width 26.3 % (11.5-14.5); White Blood Cell Count 5.5 10^3/uL (4.8-10.8)
[2023-07-11 05:27] LABS: ALT (SGPT) 11 U/L (0-50); AST (SGOT) 15 U/L (17-59); Albumin 2.5 g/dl (3.5-5.0); Alkaline Phosphatase 132 U/L (38-126); Blood Urea Nitrogen 15 mg/dl (9-20); Calcium 9.1 mg/dl (8.4-10.2); Carbon Dioxide 20 mmol/L (22-30); Chloride 107 mmol/L (98-107); Estimated Creatinine Clearance 87 ml/min; Glucose 103 mg/dl (70-99); Potassium 3.7 mmol/L (3.5-5.1); Sodium 133 mmol/L (135-145); Total Bilirubin 0.4 mg/dl (0.2-1.3); Total Protein 4.6 g/dl (6.3-8.2); eGFR > 60.00
[2023-07-11 05:38] LABS: Troponin I < 0.012 ng/ml
[2023-07-11 05:51] LABS: Absolute Neutrophils -Man Diff 3.9 10^3/uL (1.4-6.5); Band Neutrophils 12 % (0-3); Segmented Neutrophils 59 % (42-75)
[2023-07-11 05:52] LABS: Anisocytosis Slight; Lymphocytes 21 % (20-51); Metamyelocytes 4 % (-); Microcytosis Slight; Monocytes 3 % (2-9); Myelocytes 1 % (-); Normal RBC Morphology No; Platelets Checked Yes; Poikilocytosis Slight; Polychromasia Slight
[2023-07-11 05:53] LABS: Ovalocytes Slight; Total Cells Counted 100
[2023-07-11 07:00] VITALS: BP 137/62
[2023-07-11 08:46] LABS: Glycohemoglobin (HgbA1c) 8.4 % (4.0-5.6)
[2023-07-11] MEDS: MYCOSTATIN ORAL SUSPENSION 5 ML PO ×4 (09:11→21:05)
--- NOTE | 2023-07-11 09:45 | CON.GI ---
Addendum entered and electronically signed by Olya Mehta MD 07/11/23 17:25:
I saw and examined the patient.
The EXHIBIT TECHNICIAN or PA's note was reviewed and I agree with the note.
Comment:
Pt with recently dx metastatic colon cancer, diabetes admitted with abdominal pain, diarrhea, odynophagia with oral thrush, mouth pain. Has been on chemo, major weight loss now.
abd: soft
impression
abdominal pain
odynophagia
diarrhea
plan:
magic mouthwash
diflucan
stool studies
pain management consult
cholestyramine
Original Note:
Consultation
-
Date/Time Consultation Requested: 07/10/231850
Date/Time Consultation Performed: 07/11/23 4412
Requesting Provider: Dr. Romo
Performing Provider: Dr. Mehta/LYN Merritt
Reason for Consultation: abd pain, diarrhea, dyphagia
Medical History
Chief Complaint / HPI
Chief Complaint: abd pain, diarrhea, dysphagia
History of Present Illness:
68-year-old male with past medical history of recently dx metastatic colon cancer April 2023, diabetes and TIA presents to the emergency room with abdominal pain and diarrhea. Patient has started CTX for Colon Ca, and has three rounds of CTX and
follows at [facility]. The patient states that for the past 4-5 weeks since intitiation of CTX he has had diarrhea. CTX is Avastin and Folfiri. He states the diarrhea is constant, multiple times a day. He has also had dysphagia
that has been progressive and has developed oral thrush and has been unable to eat for about a week. Liquids are even painful at this point. He has lower abdominal tenderness. Mouth pain and overall general weakness. He has lost almost 50 lbs since
April. He was 180 lbs when he was here in April and now weight 133 lbs. He has a fecal management tube in place with green liquid stool. He is on oral iron at home. He denies any sick contacts. He is also on Lomotil and cholestyramine at home as
well.
Past Medical History
Past Medical History: CVA and NIDDM
Past Surgical History: Appendectomy, Tonsilectomy and Other (Left knee tendon repair, port placement)
Social History
Tobacco: Smoker (1 cigar day)
Alcohol: None
Drug: None
Family History
Family History: Other (No family history of gastrointestinal malignancy or inflammatory bowel disease. Strong family history of breast cancer)
Allergies / Home Medications
Allergy/AdvReac Type Severity Reaction Status Date / Time
No Known Allergies Allergy Verified 05/07/23 08:38
�Medication �Instructions �Recorded
omega-3-dha 29 mg-epa 6 mg-fish 1 tab PO QPM Supplement 08/04/21
oil 133 mg-vit D3 100 unit chew
tablet (Fish Oil-Vit D3)
sitagliptin phosphate 50 1 tab PO BID Diabetes 04/27/23
mg-metformin 1,000 mg tablet
(Janumet)
simvastatin 10 mg tablet 10 mg PO HS 05/25/23
aspirin 81 mg chewable tablet 81 mg PO HS 06/12/23
cyanocobalamin (vitamin B-12) 1,000 mcg PO QPM 06/12/23
1,000 mcg tablet
lisinopril 20 mg tablet 20 mg PO HS 06/12/23
loperamide 2 mg tablet 2 mg PO Q4H PRN DIARRHEA 06/12/23
ondansetron 8 mg disintegrating 8 mg PO [id number] PRN NASUEA 06/12/23
tablet
Medical Marjiuana 1 gummy PO DAILY 07/10/23
cholestyramine-aspartame 4 gram 4 g PO DAILY 07/10/23
oral powder (Cholestyramine Light)
diphenoxylate-atropine 2.5 1 tab PO TIDPRN PRN diarrhea 07/10/23
mg-0.025 mg tablet (Lomotil)
lorazepam 0.5 mg tablet 0.5 mg PO BIDPRN PRN anxiety 07/10/23
Review of Systems
-
All other systems: A 12 pt ROS was Negative except as stated above in HPI
Vital Signs
Temp Pulse Resp BP Pulse Ox
97.7 F 71 18 137/62 98
07/11/23 07:00 07/11/23 07:00 07/11/23 07:00 07/11/23 07:00 07/11/23 07:00
Physical Exam
Exam
General: Other (appears weak, thin)
HEENT: Other (oral mucosa dry, tongue with thrush)
Respiratory: Clear (anterior,) and Other (port right chest wall)
Cardiac: Regular Rhythm
GI: Soft, Non Distended, Normal Bowel Sounds and Tender (lowert abdomen)
Rectal: Other (fecal management bag with green liquid stool)
Skin: Warm and Dry
Neuro: AO x 3
Psych: Calm
Results
WBC 5.5 10^3/uL (4.8-10.8) 07/11/23 05:05
Hgb 9.0 g/dL (13.0-18.0) L 07/11/23 05:05
Hct 27.7 % (39.0-52.0) L 07/11/23 05:05
MCV 76.1 fL (80.0-94.0) L 07/11/23 05:05
Plt Count 118 10^3/uL (130-400) L D 07/11/23 05:05
PT 15.4 Sec (11.4-14.6) H 07/10/23 12:28
INR 1.24 07/10/23 12:28
APTT 29.9 Sec (23.4-35.0) 07/10/23 12:28
Sodium 133 mmol/L (135-145) L 07/11/23 05:05
Potassium 3.7 mmol/L (3.5-5.1) 07/11/23 05:05
Chloride 107 mmol/L (98-107) 07/11/23 05:05
Carbon Dioxide 20 mmol/L (22-30) L 07/11/23 05:05
BUN 15 mg/dl (9-20) 07/11/23 05:05
Creatinine 0.7 mg/dL (0.7-1.3) 07/11/23 05:05
Calcium 9.1 mg/dl (8.4-10.2) 07/11/23 05:05
Total Bilirubin 0.4 mg/dl (0.2-1.3) 07/11/23 05:05
AST 15 U/L (17-59) L 07/11/23 05:05
ALT 11 U/L (0-50) 07/11/23 05:05
Alkaline Phosphatase 132 U/L (38-126) H 07/11/23 05:05
Lipase 23 U/L (23-300) 07/10/23 12:28
Diagnostic Image Results:
CT Abd/Pelvis with IV contrast:
IMPRESSION:
1. Suspicion for a mild pancolitis. Fluid attenuation throughout the colon compatible with a diarrheal illness.
2. Mild wall thickening of the distal esophagus suggesting esophagitis.
3. Annular malignant mass in the ascending colon. No bowel obstruction.
4. Stable metastatic nodular soft tissue deposits in the right lower quadrant mesentery adjacent to the colonic mass.
5. Stable severe hepatic metastatic disease.
6. Pulmonary metastasis with decrease in size of the metastatic pulmonary nodules compared to the CT from 05/07/2023.
7. Subacute fractures of the left posterolateral 8th through 11th ribs. The 10th rib fracture is displaced, while the others are essentially nondisplaced.
Electronically signed by Goldy Smith 07/10/2023 2:22 PM
Prior GI Procedures:
EGD: Never had
Colonoscopy: 04/29/23 (DO) - Preparation of the colon was fair.
- Diverticulosis in the sigmoid colon and in the
descending colon.
- Likely malignant partially obstructing mass in the
ascending colon. Biopsied. Sent STAT.
- Unable to advance scope past this mass. Tattoo was
placed distal to mass (closer to anus)
- The examination was otherwise normal.
Assessment / Plan
-
68-year-old male with past medical history of recently dx metastatic colon cancer April 2023, diabetes and TIA presents to the emergency room with abdominal pain and diarrhea. Patient has started CTX for Colon Ca, and has three rounds of CTX and
follows at [facility]. Currently had 3 doses of Avastin and Folfiri with ongoing diarrhea since starting, lower abdominal pain for past week, weakness, decrease oral intake and odynophagia associated with oral thrush and imaging
suggesting mild wall thickening of distal esophagus suspicious for esophagitis. Patient also with 47 lb weight loss since April.
Impression:
Metastatic Colon Ca
Diarrhea
Dysphagia
Oral thrush and likely esophageal
Weight loss
Plan:
-Await pending stool studies (Salmonella, Shigella, Campylo, Leukocytes, Norovirus). CDiff is negative.
-Add O&P, giardia, crypto
-Patient on Difucan and Nystatin already.
-Add Magic Mouthwash
-Add Pantoprazole 40 mg IV daily
-Clear liquid diet (Patient would like ice/ ice pops to soothe mouth)
-Sprayer Operator consultation, discuss options (Ensure clear, etc to help with nutrition intake)
-Onc consultation pending
-
-
Thank you for consultation and allowing me to participate in the patient's care. Please call the merchandiser seasonal GI physician during the after hours with any questions or concerns.
--- NOTE | 2023-07-11 09:56 | CON.ONC ---
Impression
Impression
Ascending colon cancer, primary not resected, metastatic to lung and liver, stable on FOLFIRI
Watery diarrha
Pancolitis on CT scan
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
Anorexia
Candidal esophagitis
Plan
Plan
For diarrhea:
- cholestyramine daily
- Pepto-Bismol QID
- Cdiff negative. If/when other cultures negative, add lomotil and Imodium
- Await GI consult
- Dietary: avoid spicy, dairy, and high-solute supplements (Ensure etc). Small frequent BRAT diet meals, clear liquids when cleared by hospitalist
Continue Dialudid PRN abd pain.
Pt not willling to continue FOLFIRI due to poor QOL and FTT. Suggest sufficient break to allow diarrhea to resolve, then could consider infusional 5-FU/bevacizumab, and if tolerated then add oxaliplatin and bolus 5-FU.
Does not appear to have an actionable mutation.
Add Olanzepine 2.5 daily for appetite once tolerating PO's.
Treatment of candidal eophagitis as per Dr. Romo.
Patient History
History of Present Illness
68-year-old man known to Dr. Kline from the outpatient setting for history of metastatic colon cancer. He is comanaged by Dr. Foster at [facility] and Dr. Kline. He started FOLFIRI on June 01 with addition of a Avastin on June 28. Since May 12,
he has lost about 36 pounds. He has had near constant diarrhea since starting chemotherapy. He now also has difficulty swallowing over the last 4 to 5 days. He came to the ER with failure to thrive. His last chemotherapy treatment was June 28.
This is his first line of therapy. 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 Negative for BRAF, HER2, NRAS, ret and NTRK mutations. His disease is metastatic to lung and liver. He has a history of iron deficiency,
treated with Injectafer late May/early June. Currently with abdominal pain requiring Dilaudid. Regarding the diarrhea, he was drinking dairy-containing protein shakes prior to admission. Since admission he has not had any antidiarrheals.
C. difficile has resulted negative but remainder of the cultures are still pending. He states that nothing has worked for his diarrhea including Lomotil, cholestyramine. Complains of poor appetite.
Past-Medical/Surgical History
Past Medical History
Past Medical History: Reports Cancer (colon with mets), CVA, HTN and NIDDM
Past Surgical History: Reports Appendectomy and Orthopedic
Social History
Tobacco: Non-smoker
Alcohol: Occasional
Drug: Marijuana (medical)
Family History
Family History: Not pertinent to acute presentation
Patient Medication
�Medication �Instructions �Recorded �Confirmed �Last Taken �Type
omega-3-dha 29 mg-epa 6 mg-fish 1 tab PO QPM Supplement 08/04/21 07/10/23 06/11/23 History
oil 133 mg-vit D3 100 unit chew
tablet (Fish Oil-Vit D3)
sitagliptin phosphate 50 1 tab PO BID Diabetes 04/27/23 07/10/23 04/27/23 History
mg-metformin 1,000 mg tablet
(Janumet)
simvastatin 10 mg tablet 10 mg PO HS 05/25/23 07/10/23 06/11/23 History
aspirin 81 mg chewable tablet 81 mg PO HS 06/12/23 07/10/23 06/11/23 History
cyanocobalamin (vitamin B-12) 1,000 mcg PO QPM 06/12/23 07/10/23 06/11/23 History
1,000 mcg tablet
lisinopril 20 mg tablet 20 mg PO HS 06/12/23 07/10/23 06/11/23 History
loperamide 2 mg tablet 2 mg PO Q4H PRN DIARRHEA 06/12/23 07/10/23 Unknown History
ondansetron 8 mg disintegrating 8 mg PO [id number] PRN NASUEA 06/12/23 07/10/23 Unknown History
tablet
Medical Marjiuana 1 gummy PO DAILY 07/10/23 07/10/23 07/10/23 History
cholestyramine-aspartame 4 gram 4 g PO DAILY 07/10/23 07/10/23 Unknown History
oral powder (Cholestyramine Light)
diphenoxylate-atropine 2.5 1 tab PO TIDPRN PRN diarrhea 07/10/23 07/10/23 Unknown History
mg-0.025 mg tablet (Lomotil)
lorazepam 0.5 mg tablet 0.5 mg PO BIDPRN PRN anxiety 07/10/23 07/10/23 Unknown History
Active Medications
Generic Name Dose Route Start Last Admin
Trade Name Freq PRN Reason Stop Dose Admin
Aspirin 81 mg 07/10/23 22:00 07/10/23 21:17
Aspirin 81 Mg Chewable Tablet PO 08/07/23 21:59 81 mg
HS BETHANIE Administration
Atorvastatin Calcium 10 mg 07/10/23 22:00 07/10/23 21:17
Atorvastatin (Lipitor) 10 Mg Tablet PO 08/07/23 21:59 10 mg
HS BETHANIE Administration
Bismuth Subsalicylate 2 tablet 07/11/23 10:00
Pepto-Bismol Chewable Tablet (Bismuth Subsalicylate 262 Mg) PO 08/08/23 09:59
QIDPRN BETHANIE
Cholestyramine Resin 4 grams 07/11/23 10:00
Cholestyramine/Aspartame 4 Gram Packet PO 08/08/23 09:59
BID BETHANIE
Cyanocobalamin 1,000 mcg 07/10/23 18:07 07/10/23 20:07
Cyanocobalamin 1,000 Mcg Tablet PO 08/07/23 18:06 1,000 mcg
QPM BETHANIE Administration
Dextrose 12.5 grams 07/10/23 18:07
Dextrose 50% (0.5 Grams/Ml) 50 Ml Syringe IV 08/07/23 18:06
[id number] PRN
hypoglycemia
Protocol
Enoxaparin Sodium 40 mg 07/10/23 18:07 07/10/23 19:51
Enoxaparin Sodium 40 Mg/0.4 Ml Syringe SC 08/07/23 18:06 40 mg
QPM BETHANIE Administration
Glucagon 1 mg 07/10/23 18:07
Glucagon 1 Mg Vial IM 08/07/23 18:06
PRN PRN
hypoglycemia
Protocol
Hydromorphone HCl 0.5 mg 07/10/23 18:07 07/11/23 01:30
Hydromorphone 0.5 Mg/0.5 Ml Syringe IV 07/24/23 18:06 0.5 mg
Q4HPRN PRN Administration
moderate to severe pain
Fluconazole/Sodium Chloride 100 mls @ 100 mls/hr 07/11/23 18:00
Diflucan 200 Mg IV 07/20/23 17:59
Q24H BETHANIE
Sodium Chloride 1,000 mls @ 60 mls/hr 07/10/23 18:07 07/10/23 19:37
Nss IV 1,000 mls
.[id number] BETHANIE Administration
Insulin Aspart 0 units 07/10/23 18:07 07/11/23 05:09
Insulin Aspart Low Resistance 300 Units/3 Ml Pen.Injctr SC 08/07/23 18:06 Not Given
Q6 BETHANIE
Protocol
Lorazepam 0.5 mg 07/10/23 18:07 07/11/23 01:29
Lorazepam 0.5 Mg Tablet PO 08/07/23 18:06 0.5 mg
BIDPRN PRN Administration
anxiety
Nystatin 5 ml 07/10/23 18:00 07/11/23 09:11
Nystatin Oral Suspension 500,000 Units/5 Ml PO 08/07/23 17:59 5 ml
QID BETHANIE Administration
Ondansetron HCl 4 mg 07/10/23 15:45
Ondansetron 4 Mg/2 Ml Vial IV 08/07/23 15:44
Q6HPRN PRN
NAUSEA/VOMITING
Sodium Chloride 0 flush 07/10/23 16:00
Sodium Chloride 0.9% (Flush) Syringe IV 08/07/23 15:59
PER PROTOCOL BETHANIE
Review of Systems
-
History Source: Patient and Records
All Other Systems: Reviewed and Negative
Constitutional: Reports Weight Loss, No Appetite and Fatigue
EENT: Reports No Symptoms
Respiratory: Reports No Symptoms
Cardiac: Reports No Symptoms
GI: Reports Abdominal Pain, Nausea, Diarrhea, Bloody Stools, Anorexia and Other (odynophagia/dysphagia)
Breast: Reports No Symptoms
: Reports No Symptoms
Musculoskeletal: Reports No Symptoms
Skin: Reports No Symptoms
Neuro: Reports No Symptoms
Endocrine: Reports No Symptoms
Hematologic/Lymphatic: Reports No Symptoms
Allergy / Immunology: Reports No Symptoms
Psych: Reports No Symptoms
Physical Exam
-
General: Cachetic and Other (Appears moderately ill)
HEENT: Negative Jaundice or Moist Mucous Membranes
Cardiology: Normal Sinus Rhythm, S1 and S2
Pulmonary: Clear; Negative Wheezes
GI: Soft and No Organomegaly
Musculoskeletal: Negative No Clubbing, No Cyanosis or No Edema
Extremities: No C/C/E
Neurology: Non Focal and No Word Finding Difficulty
Skin: Warm and Dry
Hematologic / Lymphatic: No Lymphadenopathy and No Petechiae
Psych: Calm and Intact Judgement/Insight
Labs
Lab Results
WBC 5.5 10^3/uL (4.8-10.8) 07/11/23 05:05
RBC 3.64 10^6/uL (4.70-6.10) L 07/11/23 05:05
Hgb 9.0 g/dL (13.0-18.0) L 07/11/23 05:05
Hct 27.7 % (39.0-52.0) L 07/11/23 05:05
MCV 76.1 fL (80.0-94.0) L 07/11/23 05:05
MCH 24.7 pg (27.0-31.0) L 07/11/23 05:05
MCHC 32.5 g/dL (33.0-37.0) L 07/11/23 05:05
RDW 26.3 % (11.5-14.5) H 07/11/23 05:05
Plt Count 118 10^3/uL (130-400) L D 07/11/23 05:05
MPV Not Reportable 07/11/23 05:05
Creatinine 0.7 mg/dL (0.7-1.3) 07/11/23 05:05
CT C/A/P 07/10/23: Personally reviewed films in comparison with prior. Small pulmonary nodules appears improved. So far no change in liver mets.
Vital Signs
Vital Signs
Temp Pulse Resp BP Pulse Ox
97.7 F 71 18 137/62 98
07/11/23 07:00 07/11/23 07:00 07/11/23 07:00 07/11/23 07:00 07/11/23 07:00
[2023-07-11] MEDS: PEPTO-BISMOL 2 TABLET PO ×4 (10:13→21:05)
[2023-07-11] MEDS: QUESTRAN LIGHT/PREVALITE 4 GRAMS PO ×2 (10:13→19:45)
[2023-07-11] MEDS: NSS 1000 IV (10:29)
[2023-07-11 11:00] VITALS: BP 139/61
[2023-07-11] MEDS: NSS (PRESERVATIVE FREE) 10 ML IV (11:05)
[2023-07-11] MEDS: PROTONIX IV 40 MG IV (11:06)
[2023-07-11 11:42] LABS: Glucose - Point of Care 118 mg/dl (70-99)
--- NOTE | 2023-07-11 11:53 | W.PN.HOSP.TC ---
Today's Communication/Plan
-
Monitor vital signs and see plan
Monitor QTc
Continue with fluconazole, nystatin
Clears for now
Continue with fluids
Assessment / Plan
Assessment / Plan
General: No Apparent Distress and Appears Chronically Ill
HEENT: Anicteric and Moist mucous membranes
Respiratory: Clear and Non Labored Respirations; No Wheezes
Cardiac: S1/S2, Regular Rhythm and Other (Right chest wall port)
GI: Soft, Non Tender and Non Distended
Genito-urinary: No Bar
Musculoskeletal: No Edema
Neuro: Awake, Alert, Oriented and AO x 3
Psych: Calm and Intact Judgment/Insight
Abdominal pain, diarrhea likely secondary to pancolitis
Could be secondary to chemo
neg noro, neg cdiff
Gi following
started clears
IVF
pain control
Started on cholestyramine, Pepto-Bismol
monitor Qtc while on zofran and fluconozole
Once infection is ruled out then can give antidiarrheal meds
Dysphagia likely secondary to candidal esophagitis
Denies Odynophagia
Thrush on exam
Nystatin
IV fluconazole
GI evaluated
speech consult
Failure to thrive, dehydration
will see how patient does with medical treatment
Gets intermittent fluids outpatient
Mild chest discomfort, suspect secondary esophagitis
trop neg
monitor
Mild hyponatremia
monitor
Metastatic colon cancer
Recently diagnosed in April
Currently on chemo, follows with Dr. Kline and [facility]
Oncology following; likely would need to be stronger for further chemo
Essential hypertension
Continue lisinopril
Diabetes mellitus
A1c 8.4
ISS;accuchecks
hold janumet
History of TIA
Currently without any deficits
On aspirin
DVT prophylaxis
Lovenox
Full code, confirmed on admission
Discussed with spouse at bedside
I spent a total of 52 minutes with the patient or on the floor. More than 50% of this time involved counseling and coordination of care.
Anticipated Discharge: > 48 hours
Subjective/Interval History
-
Date of Service: July 11, 2023
still has dysphagia and abdominal pain
Objective Data
-
Labs:
Laboratory Results
07/11/23
05:05
WBC 5.5
Hgb 9.0 L
Hct 27.7 L
Plt Count 118 L D
Sodium 133 L
Potassium 3.7
Chloride 107
Carbon Dioxide 20 L
BUN 15
Creatinine 0.7
Glucose 103 H
Calcium 9.1
Total Bilirubin 0.4
AST 15 L
ALT 11
Alkaline Phosphatase 132 H
Vital Signs:
Vital Signs
Temp Pulse Resp BP Pulse Ox
97.5 F 72 17 139/61 98
07/11/23 11:00 07/11/23 11:00 07/11/23 11:00 07/11/23 11:00 07/11/23 11:00
I&O
07/10/23 07/11/23 07/12/23
06:59 06:59 06:59
Intake Total 1720 / 1720
Output Total 350 / 350
Balance 1370 / 1370
[2023-07-11] MEDS: NOVOLOG FLEXPEN-LOW RESISTANCE SC ×2 (12:52→17:15)
[2023-07-11 15:23] VITALS: BMI 20.1
[2023-07-11 15:57] VITALS: BP 126/60
[2023-07-11 16:46] LABS: Glucose - Point of Care 99 mg/dl (70-99)
--- NOTE | 2023-07-11 17:25 | W.PN.UPDATE ---
Update Note
Progress Note Update
for billing purposes only
[2023-07-11] MEDS: VITAMIN B-12 1000 MCG PO (17:52)
[2023-07-11] MEDS: LOVENOX 40 MG SC (17:52)
[2023-07-11 19:30] VITALS: BP 135/62
[2023-07-11] MEDS: DIFLUCAN 200 MG 100 IV (19:43)
[2023-07-11] MEDS: LIPITOR 10 MG PO (21:04)
[2023-07-11] MEDS: LOW STRENGTH ASPIRIN 81 MG PO (21:04)
[2023-07-11 21:44] LABS: Glucose - Point of Care 104 mg/dl (70-99)
[2023-07-11 23:00] VITALS: BP 130/58
[2023-07-12] VITALS (8 sets, daily range): BP systolic 122–163; BP diastolic 51–85; PULSE 74–82
[2023-07-12 00:24] LABS: CEA 474 ng/ml
[2023-07-12] MEDS: DILAUDID 0.5 MG IV ×3 (01:46→16:38)
[2023-07-12] MEDS: NSS 1000 IV ×2 (04:03→20:40)
[2023-07-12 05:08] LABS: % Basophils 0.3 % (0-2); % Eosinophils 0.6 % (0-6); % Immature Granulocytes 12.1 % (0-0.5); % Lymphocytes 13.8 % (20.5-51.1); % Monocytes 8.5 % (1.7-9.3); % Neutrophils 64.7 % (42.2-75.2); Absolute Immature Granulocytes 0.9 10^3/uL (0-0.05); Absolute Monocytes 0.6 10^3/uL (0.1-0.6); Absolute Neutrophils 4.5 10^3/uL (1.4-6.5); Hematocrit 26.8 % (39.0-52.0); Hemoglobin 8.4 g/dL (13.0-18.0); Mean Corp Hgb Conc. 31.3 g/dL (33.0-37.0); Mean Corpuscular Volume 76.6 fL (80.0-94.0); Nucleated Red Blood Cells % 0.3 % (-); Platelet Count 116 10^3/uL (130-400); Red Cell Dist. Width 26.3 % (11.5-14.5)
[2023-07-12 05:40] LABS: ALT (SGPT) < 10 U/L (0-50); AST (SGOT) 16 U/L (17-59); Albumin 2.3 g/dl (3.5-5.0); Alkaline Phosphatase 127 U/L (38-126); Blood Urea Nitrogen 8 mg/dl (9-20); Calcium 8.7 mg/dl (8.4-10.2); Carbon Dioxide 22 mmol/L (22-30); Chloride 105 mmol/L (98-107); Estimated Creatinine Clearance 87 ml/min; Glucose 76 mg/dl (70-99); Potassium 3.1 mmol/L (3.5-5.1); Sodium 130 mmol/L (135-145); Total Bilirubin 0.3 mg/dl (0.2-1.3); Total Protein 4.3 g/dl (6.3-8.2); eGFR > 60.00
[2023-07-12 07:25] LABS: Glucose - Point of Care 87 mg/dl (70-99)
[2023-07-12] MEDS: NOVOLOG FLEXPEN-LOW RESISTANCE SC ×3 (08:19→17:28)
[2023-07-12] MEDS: QUESTRAN LIGHT/PREVALITE 4 GRAMS PO ×2 (08:21→20:44)
[2023-07-12] MEDS: PROTONIX IV 40 MG IV (08:21)
[2023-07-12] MEDS: NSS (PRESERVATIVE FREE) 10 ML IV (08:22)
[2023-07-12] MEDS: MYCOSTATIN ORAL SUSPENSION 5 ML PO ×4 (08:22→22:01)
[2023-07-12] MEDS: KCL ELIXIR 40 MEQ PO (08:22)
[2023-07-12] MEDS: PEPTO-BISMOL 2 TABLET PO ×4 (08:22→22:01)
[2023-07-12] MEDS: LOMOTIL 1 TABLET PO (09:10)
--- NOTE | 2023-07-12 10:38 | PTOTSP ---
ST Acute Care Evaluation
Pt currently presents with mild to moderate pharyngoesophageal dysphagia characterized by occasional immediate and delayed, weak cough following PO intake with known oral, pharyngeal, and esophageal thrush.
Recommendations:
- When appropriate for diet upgrade, pt cleared for regular solids and thin liquids (pt will self-select softer foods he knows he can handle chewing).
- Medications crushed in puree for now.
- MILKING MACHINE MECHANIC will continue to monitor airway protection - anticipate pharyngoesophageal symptoms will improve with thrush tx. No current PNA, afebrile, and no leukocytosis - pt likely still protecting airway/lungs. If s/s at bedside persistent, though, pt
may need video fluoroscopy to see if there is any organic pharyngeal dysphagia unrelated to thrush.
- Continue thrush tx.
- Consider nutrition consult, appetite stimulant, supplemental nutrition, etc.
--- NOTE | 2023-07-12 10:46 | CM ---
Patient seen at bedside with present. Patient stated that he lives with his in a 2 story home with no DME, no past need for VN or SNF. [facility] uses [facility] [address] and he sees LATISHA Box from [facility]. Patient
plan is for home with VN if recommended. CM will continue to follow for discharge planning needs.
Plan; home with VN pending physician assessment.
--- NOTE | 2023-07-12 10:51 | W.PN.HOSP.TC ---
Addendum entered and electronically signed by Kike Romo MD 07/12/23 16:46:
Severe protein calorie malnutrition
Original Note:
Today's Communication/Plan
-
Monitor vital signs and see plan
Continue with fluids
Follow stool studies
Clears for now
Lomotil
Replete potassium
monitor Na
Assessment / Plan
Assessment / Plan
General: No Apparent Distress and Appears Chronically Ill
HEENT: Anicteric and Moist mucous membranes
Respiratory: Clear and Non Labored Respirations; No Wheezes
Cardiac: S1/S2, Regular Rhythm and Other (Right chest wall port)
GI: Soft, Non Tender and Non Distended
Genito-urinary: No Bar
Musculoskeletal: No Edema
Neuro: Awake, Alert, Oriented and AO x 3
Psych: Calm and Intact Judgment/Insight
Abdominal pain, diarrhea likely secondary to pancolitis
Could be secondary to chemo
neg noro, neg cdiff; some stool studies pending
Gi following
started clears
IVF
pain control
Started on cholestyramine, Pepto-Bismol
monitor Qtc while on zofran and fluconozole
Once infection is ruled out then can give antidiarrheal meds
dose of lomotil today
Dysphagia likely secondary to candidal esophagitis
Denies Odynophagia
Thrush on exam
Nystatin
IV fluconazole
GI following
speech following. Per them patient can be put on solids once okay from colitis standpoint. If does not do well then will need video swallow study
Failure to thrive, dehydration
will see how patient does with medical treatment
Gets intermittent fluids outpatient
Mild chest discomfort, suspect secondary esophagitis
trop neg
monitor
Mild hyponatremia
monitor
Metastatic colon cancer
Recently diagnosed in April
Currently on chemo, follows with Dr. Kline [facility]
Oncology following; likely would need to be stronger for further chemo
Hypokalemia
Replete
Essential hypertension
Continue lisinopril
Diabetes mellitus
A1c 8.4
ISS;accuchecks
hold janumet
Thrombocytopenia secondary to malignancy
Monitor
History of TIA
Currently without any deficits
On aspirin
DVT prophylaxis
Lovenox
Full code, confirmed on admission
I spent a total of 53 minutes with the patient or on the floor. More than 50% of this time involved counseling and coordination of care.
Anticipated Discharge: > 48 hours
Subjective/Interval History
-
Date of Service: July 12, 2023
pain is little better per patient
Objective Data
-
Labs:
Laboratory Results
07/12/23
04:23
WBC 7.0
Hgb 8.4 L
Hct 26.8 L
Plt Count 116 L
Sodium 130 L
Potassium 3.1 L
Chloride 105
Carbon Dioxide 22
BUN 8 L
Creatinine 0.7
Glucose 76
Calcium 8.7
Total Bilirubin 0.3
AST 16 L
ALT < 10
Alkaline Phosphatase 127 H
Vital Signs:
Vital Signs
Temp Pulse Resp BP Pulse Ox
97.9 F 66 16 124/56 99
07/12/23 08:08 07/12/23 08:08 07/12/23 08:08 07/12/23 08:08 07/12/23 08:08
I&O
07/11/23 07/12/23 07/13/23
06:59 06:59 06:59
Intake Total 1720 / 1720 1160 / 1160
Output Total 350 / 350 1575 / 1575
Balance 1370 / 1370 -415 / -415
--- NOTE | 2023-07-12 11:32 | W.PN.ONC ---
Today's Communication / Plan
-
07/11 WBC 7, Hgb 8.4, PLT 116
CBC with diff daily
Diarrhea management:
Cholestyramine daily, Pepto-Bismol QID, Lomotil given once
Infectious stool workup in progress: Await all stool studies. If/when other cultures negative, add Lomotil and Imodium as scheduled medications
Dietary recommendations: avoid spicy foods, eliminate dairy and high-solute supplements such as Ensure
Treatment of candidal esophagitis/oral thrush with Diflucan, Nystatin per primary team
Supportive care
Consider pre-medicating prior to meals for comfort
Dr. Ji recommended Olanzapine 2.5 daily for appetite once tolerating PO
Speech evaluation at bedside
Patient does not wish to continue FOLFIRI due to poor quality of life with side effects from treatment. CT c/a/p from 07/[address] Kline, she states she will call patient/spouse tomorrow, 07/12, to discuss further treatment options
We will follow.
Impression
Impression
Ascending colon cancer, primary not resected, metastatic to lung and liver, stable on FOLFIRI
Persistent watery diarrhea
Abdominal pain
Pancolitis on CT scan
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
Anorexia, FTT
Candidal esophagitis
Subjective/Objective
Subjective/Objective
Patient is sitting up in bed. His biggest complaint is the mouth pain from thrush and inability to eat. He complains of lack of taste and abdominal pain. He is discouraged by his quality of life on this regimen of chemotherapy.
Vital Signs:
Vital Signs
Temp Pulse Resp BP Pulse Ox
97.9 F 66 16 124/56 99
07/12/23 08:08 07/12/23 08:08 07/12/23 08:08 07/12/23 08:08 07/12/23 08:08
physical exam:
aaox3, pallor, appears chronically ill
tongue with large area of thrush (patient states improving slowly)
abdomen soft, rectal trumpet in place, liquid stool in collection bag
no edema
Lab Results:
Laboratory Data
WBC 7.0 10^3/uL (4.8-10.8) 07/12/23 04:23
Hgb 8.4 g/dL (13.0-18.0) L 07/12/23 04:23
Plt Count 116 10^3/uL (130-400) L 07/12/23 04:23
PT 15.4 Sec (11.4-14.6) H 07/10/23 12:28
INR 1.24 07/10/23 12:28
APTT 29.9 Sec (23.4-35.0) 07/10/23 12:28
eGFR > 60.00 07/12/23 04:23
[2023-07-12 11:36] LABS: Glucose - Point of Care 100 mg/dl (70-99)
[2023-07-12 12:51] LABS: Iron 46 ug/dl (49-181)
[2023-07-12 13:00] LABS: Percent Saturation 27 % (20-50); Total Iron Binding Capacity 169 ug/dl (261-462)
[2023-07-12] MEDS: IMODIUM 2 MG PO (15:30)
--- NOTE | 2023-07-12 15:45 | W.PN.GI.CBS2 ---
Addendum entered and electronically signed by Vance Lyons MD 07/12/23 18:03:
I saw and examined the patient.
The TURNING MACHINE SET UP OPERATOR or PA's note was reviewed and I agree with the note.
Comment: 68 yo M recent diagnosis met colon ca here with diarrhea, FTT, oral thrush suspect all related to chemo
supportive care
reviewed onc note plan scheduled imodium or lomotil once stool cx neg
I reached out to pharmacy unfortunately tincture of opium not option in hospital (pt states imodium/lomotil no help at home)
cont pepto/questran
oral thrush improving with diflucan/nystatin
we discussed importance of crcs in children
family meeting with Dr. Kline [facility]
Original Note:
Today's Communication / Plan
-
Etiology for diarrhea related to chemo with onset after start of chemo vs infectious vs other
cont supportive care
stool studies neg crypto/giardia, cidff, stool bx pending
-cont Difucan and nystatin
remains on Pepto BID and Cholestayramine BID with dark stool
-cont Magic Mouthwash
-cont Pantoprazole 40 mg IV daily
cont clear diet with enlive supplement-- offered diet advancement but does not feel he can advance diet
montior volume of output to see if IVF needs increase
-pt for meeting with Dr. Kline in AM to discuss overall plan
per lexicomp avastin
Gastrointestinal: Abdominal pain (grade 3/4: 8% to 12%), decreased appetite (34% to 36%), diarrhea (21% to 40%), dysgeusia, nausea (53% to 72%), stomatitis (15% to 25%)
Assessment / Plan
-
68-year-old male with past medical history of recently dx metastatic colon cancer April 2023, diabetes and TIA presents to the emergency room with abdominal pain and diarrhea. Patient has started CTX for Colon Ca, and has three rounds of CTX and
follows at [facility]. Currently had 3 doses of Avastin and Folfiri with ongoing diarrhea since starting, lower abdominal pain for past week, weakness, decrease oral intake and odynophagia associated with oral thrush and imaging
suggesting mild wall thickening of distal esophagus suspicious for esophagitis. Patient also with 47 lb weight loss since April.
Impression:
Metastatic Colon Ca
Diarrhea
pancolitis on CT
Dysphagia- wall thickening distal esophagus
Oral thrush and likely esophageal
decreased sense of taste
recent rib fractures after fall
Weight loss
Plan:
Etiology for diarrhea related to chemo with onset after start of chemo vs infectious vs other
cont supportive care
stool studies neg crypto/giardia, cidff, stool bx pending
-cont Difucan and nystatin
remains on Pepto BID and Cholestayramine BID with dark stool
-cont Magic Mouthwash
-cont Pantoprazole 40 mg IV daily
cont clear diet with enlive supplement-- offered diet advancement but does not feel he can advance diet
montior volume of output to see if IVF needs increase
-pt for meeting with Dr. Kline in AM to discuss overall plan
per lexicomp avastin
Gastrointestinal: Abdominal pain (grade 3/4: 8% to 12%), decreased appetite (34% to 36%), diarrhea (21% to 40%), dysgeusia, nausea (53% to 72%), stomatitis (15% to 25%)
Subjective
Subjective
Date of Service: July 12, 2023
clear diet, brown liquid stools slight improved odynophagia able to eat soup but eating less with constant diarrhea- dark stools with pepto use
Objective
Data Reviewed
Laboratory Data:
Laboratory Results
07/12/23 04:23
07/12/23 04:23
Laboratory Results
PT 15.4 Sec (11.4-14.6) H 07/10/23 12:28
INR 1.24 07/10/23 12:28
APTT 29.9 Sec (23.4-35.0) 07/10/23 12:28
Total Bilirubin 0.3 mg/dl (0.2-1.3) 07/12/23 04:23
AST 16 U/L (17-59) L 07/12/23 04:23
ALT < 10 U/L (0-50) 07/12/23 04:23
Alkaline Phosphatase 127 U/L (38-126) H 07/12/23 04:23
Lipase 23 U/L (23-300) 07/10/23 12:28
Vital Signs and I&O:
Vital Signs
Temp Pulse Resp BP Pulse Ox
97.8 F 71 17 150/70 98
07/12/23 15:00 07/12/23 15:00 07/12/23 15:00 07/12/23 15:00 07/12/23 15:00
I&O
07/11/23 07/12/23 07/13/23
06:59 06:59 06:59
Intake Total 1720 / 1720 1160 / 1160
Output Total 350 / 350 1575 / 1575
Balance 1370 / 1370 -415 / -415
Physical Exam
Physical Exam
HEENT: Anicteric and Other (some whitish debris on tongue)
Cardiology: Normal Sinus Rhythm
Pulmonary: Clear
GI: Soft, Non Distended and Tender (minimal )
Extremities: No Edema
Neuro: Non Focal
[2023-07-12 16:08] LABS: Glucose - Point of Care 86 mg/dl (70-99)
--- NOTE | 2023-07-12 16:21 | PN.CDI ---
CDI
- -
CDI:
Physician Documentation Request
Admit Date: 07/10/23 15:50
Dear Doctor Demetrius,
07/10 RD note states 'compared to UBW of 180 lbs pt with 45 lb (25%) weight loss in 2 months, significant. During visit RD able to observe moderate protrusion of clavical, temporal wasting, orbital area sunken in and apparent ribs. With observed
muscle and fat wasting > 7.5% weight loss in 3 months and < 75% estimated needs in < 1 month pt meets AND/ASPEN criteria for severe protein calorie malnutrition of chronic illness. '
Patient described in ED exam as 'cachectic ....'
Based on the information, which of the following most accurately represents the patient's nutritional status?
Malnutrition (specify if mild, moderate or severe)
Cachexia without malnutrition
No nutritional deficiency
Other (please specify)
[place] Criteria ([facility] Hospitalist 2017)
2 or more criteria must be present for either
non severe or severe malnutrition
Note that the criteria differs related to the
presence of an acute or chronic illness
Acute Illness Chronic Illness
Energy Intake Non Severe: <75% for >7 days Non Severe: <75% for >1 month
Severe: <50% for >5 days Severe: <75% for >1 month
Weight Loss Non Severe: 1-2% over 1 week Non Severe: 5% over 1 month
5% over 1 month 7.5% over 3 months
7.5% over 3 months 10% over 6 months
1 year N/A 20% over 1 year
Severe: >2% over 1 week Severe: >5% over 1 month
>5% over 1 month >7.5% over 3 months
>7.5% over 3 months >10% over 6 months
1 year N/A >20% over 1 year
Body Fat Non Severe: Mild Decrease Non Severe: Mild Loss
Severe: Moderate Decrease Severe: Severe Loss
Muscle Mass Non Severe: Mild Decrease Non Severe: Mild Loss
Severe: Moderate Decrease Severe: Severe Loss
Fluid Accumulation Non Severe: Mild Accumulation Non Severe: Mild Accumulation
Severe: Moderate to severe Severe: Moderate to severe
accumulation accumulation
Reduced Sql Programmer Strength Non Severe: N/A Non Severe: N/A
Severe: Measurably reduced Severe: Measurably reduced
Additional criteria that can be used to Determine if Mild or Moderate Malnutrition ([employer] Manual 2018)
Mild Moderate Severe
Albumin gm/dl <3.0 gm/dl <2.5 gm/dl <2.0 gm/dl
Pre Albumin mg/dl <15 gm/dl <10 mg/dl <5.0 mg/dl
BMI <18.5 <17 <16
Use of terms such as suspected, likely, concern for, or probable (associated with a specific diagnosis that is being evaluated, monitored, or treated as if it exists) are acceptable and can be coded in the inpatient setting, when documented at the
time of discharge.
Thank you,
Filomena Paige RN, BSN
CDI Specialist
tiger text
Please use your independent medical judgment in providing your response.
[2023-07-12] MEDS: VITAMIN B-12 1000 MCG PO (17:19)
[2023-07-12] MEDS: DIFLUCAN 200 MG 100 IV (17:19)
[2023-07-12] MEDS: LOVENOX 40 MG SC (17:19)
--- NOTE | 2023-07-12 18:03 | W.PN.UPDATE ---
Update Note
Progress Note Update
billing purposes
[2023-07-12 21:42] LABS: Glucose - Point of Care 107 mg/dl (70-99)
[2023-07-12] MEDS: LOW STRENGTH ASPIRIN 81 MG PO (22:01)
[2023-07-12] MEDS: LIPITOR 10 MG PO (22:01)
[2023-07-13 03:05] VITALS: BP 134/67
[2023-07-13 05:17] LABS: Hematocrit 27.2 % (39.0-52.0); Hemoglobin 8.7 g/dL (13.0-18.0); Mean Corpuscular Hgb 24.2 pg (27.0-31.0); Mean Corpuscular Volume 75.8 fL (80.0-94.0); Platelet Count 112 10^3/uL (130-400); Red Blood Cell Count 3.59 10^6/uL (4.70-6.10); Red Cell Dist. Width 26.2 % (11.5-14.5); White Blood Cell Count 7.9 10^3/uL (4.8-10.8)
[2023-07-13 05:25] VITALS: BMI 20.4
[2023-07-13 05:31] LABS: Band Neutrophils 3 % (0-3); Lymphocytes 17 % (20-51); Metamyelocytes 1 % (-); Monocytes 2 % (2-9); Myelocytes 4 % (-); Segmented Neutrophils 73 % (42-75)
[2023-07-13 05:32] LABS: Anisocytosis 1+; Hypochromasia Slight; Normal RBC Morphology No; Ovalocytes Slight; Platelets Checked Yes; Total Cells Counted 100
[2023-07-13 05:41] LABS: ALT (SGPT) < 10 U/L (0-50); AST (SGOT) 15 U/L (17-59); Albumin 2.2 g/dl (3.5-5.0); Alkaline Phosphatase 132 U/L (38-126); Blood Urea Nitrogen 4 mg/dl (9-20); Calcium 8.6 mg/dl (8.4-10.2); Carbon Dioxide 22 mmol/L (22-30); Chloride 101 mmol/L (98-107); Estimated Creatinine Clearance 88 ml/min; Glucose 86 mg/dl (70-99); Sodium 132 mmol/L (135-145); Total Bilirubin 0.4 mg/dl (0.2-1.3); Total Protein 4.3 g/dl (6.3-8.2); eGFR > 60.00
[2023-07-13 07:00] VITALS: BP 146/71
--- NOTE | 2023-07-13 07:31 | W.PN.ONC2 ---
Today's Communication / Plan
-
Slowly improving. Further Tx TBD post improvement.
Impression
Impression
Ascending colon cancer, primary not resected, metastatic to lung and liver, stable on FOLFIRI
Persistent watery diarrhea
Abdominal pain
Pancolitis on CT scan
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
Anorexia, FTT
Candidal esophagitis
Plan
Plan
For diarrhea:
- cholestyramine daily
- Pepto-Bismol QID
- Cdiff negative. If/when other cultures negative, add lomotil and Imodium
- Await GI consult
- Dietary: avoid spicy, dairy, and high-solute supplements (Ensure etc). Small frequent BRAT diet meals, clear liquids when cleared by hospitalist
Continue Dialudid PRN abd pain.
Pt not willling to continue FOLFIRI due to poor QOL and FTT. Suggest sufficient break to allow diarrhea to resolve, then could consider infusional 5-FU/bevacizumab, and if tolerated then add oxaliplatin and bolus 5-FU.
Does not appear to have an actionable mutation.
Add Olanzepine 2.5 daily for appetite once tolerating PO's.
Treatment of candidal eophagitis as per Dr. Romo.
Subjective/Objective
Chief Complaint
ACS Heme Onc
Subjective
Diarrhea resolved. Wants to /\\ Tx. Dr. Kline to call later today.
Vital Signs:
Vital Signs
Temp Pulse Resp BP Pulse Ox
97.8 F 72 18 146/71 98
07/13/23 07:00 07/13/23 07:00 07/13/23 07:00 07/13/23 07:00 07/13/23 07:00
Lab Results:
Laboratory Data
WBC 7.9 10^3/uL (4.8-10.8) 07/13/23 04:51
Hgb 8.7 g/dL (13.0-18.0) L 07/13/23 04:51
Plt Count 112 10^3/uL (130-400) L 07/13/23 04:51
PT 15.4 Sec (11.4-14.6) H 07/10/23 12:28
INR 1.24 07/10/23 12:28
APTT 29.9 Sec (23.4-35.0) 07/10/23 12:28
eGFR > 60.00 07/13/23 04:51
[2023-07-13] MEDS: NSS (PRESERVATIVE FREE) 10 ML IV (07:39)
[2023-07-13] MEDS: PEPTO-BISMOL 2 TABLET PO ×3 (07:39→21:02)
[2023-07-13] MEDS: PROTONIX IV 40 MG IV (07:39)
[2023-07-13] MEDS: MYCOSTATIN ORAL SUSPENSION 5 ML PO ×3 (07:40→21:02)
[2023-07-13 07:42] LABS: Glucose - Point of Care 101 mg/dl (70-99)
[2023-07-13] MEDS: KCL ELIXIR 40 MEQ PO (07:44)
[2023-07-13] MEDS: NOVOLOG FLEXPEN-LOW RESISTANCE SC ×3 (07:52→16:14)
[2023-07-13] MEDS: KCL 1020 MEQ IV ×2 (08:25→23:42)
--- NOTE | 2023-07-13 09:11 | W.PN.GI.CBS2 ---
Addendum entered and electronically signed by Vance Lyons MD 07/13/23 18:35:
I saw and examined the patient.
The AGRICULTURAL SCIENTIST or PA's note was reviewed and I agree with the note.
Comment: 68 yo M recent diagnosis met colon ca here with diarrhea, FTT, oral thrush suspect all related to chemo
supportive care
reviewed onc note plan scheduled imodium or lomotil once stool cx neg (pending shiga toxin) - I would recommend started standing lomotil if shiga negative
I reached out to pharmacy unfortunately tincture of opium not option in hospital (pt states imodium/lomotil no help at home)
cont pepto/questran
oral thrush improving with diflucan/nystatin
GI will sign off
Pls call if no improvement in diarrhea with standing lomotil or with any ?s
Original Note:
Today's Communication / Plan
-
Etiology for diarrhea related to chemo with onset after start of chemo vs infectious vs other
cont supportive care
stool studies neg crypto/giardia, cidff, stool bx pending
-cont Difucan and nystatin
remains on Pepto BID and Cholestayramine BID with dark stool-- monitor stool output as now rectal tube out to see if can back down on medication doses
-cont Magic Mouthwash as needed
-cont Pantoprazole 40 mg IV daily
stool volume decreased last 24 hours rectal tube now out
pt willing to try increased diet will add ADA diet -- discussed limiting lactose if diarrhea continues
cont IVF for now
pt and family wishes for meeting with dr. Kline but seen by Dr. Kim early this am-- advised to call office to arrange meeting to discuss therapy
Dr. Lyons discussed d4/2 importance of crcs in children
per lexicomp avastin
Gastrointestinal: Abdominal pain (grade 3/4: 8% to 12%), decreased appetite (34% to 36%), diarrhea (21% to 40%), dysgeusia, nausea (53% to 72%), stomatitis (15% to 25%)
Assessment / Plan
-
68-year-old male with past medical history of recently dx metastatic colon cancer April 2023, diabetes and TIA presents to the emergency room with abdominal pain and diarrhea. Patient has started CTX for Colon Ca, and has three rounds of CTX and
follows at [facility]. Currently had 3 doses of Avastin and Folfiri with ongoing diarrhea since starting, lower abdominal pain for past week, weakness, decrease oral intake and odynophagia associated with oral thrush and imaging
suggesting mild wall thickening of distal esophagus suspicious for esophagitis. Patient also with 47 lb weight loss since April.
Impression:
Metastatic Colon Ca
Diarrhea
pancolitis on CT
stomatitis
Dysphagia- wall thickening distal esophagus
Oral thrush and likely esophageal
decreased sense of taste
recent rib fractures after fall
anemia
Weight loss
severe calorie malnutrition
NIDDM
Plan:
Etiology for diarrhea related to chemo with onset after start of chemo vs infectious vs other
cont supportive care
stool studies neg crypto/giardia, cidff, stool bx pending
-cont Difucan and nystatin
remains on Pepto BID and Cholestayramine BID with dark stool-- monitor stool output as now rectal tube out to see if can back down on medication doses
-cont Magic Mouthwash as needed
-cont Pantoprazole 40 mg IV daily
stool volume decreased last 24 hours rectal tube now out
pt willing to try increased diet will add ADA diet -- discussed limiting lactose if diarrhea continues
cont IVF for now
pt and family wishes for meeting with dr. Kline but seen by Dr. Kim early this am-- advised to call office to arrange meeting to discuss therapy
Dr. Lyons discussed d4/2 importance of crcs in children
per lexicomp avastin
Gastrointestinal: Abdominal pain (grade 3/4: 8% to 12%), decreased appetite (34% to 36%), diarrhea (21% to 40%), dysgeusia, nausea (53% to 72%), stomatitis (15% to 25%)
Subjective
Subjective
Date of Service: July 13, 2023
liquid stools 07/11 975 then 300ml 07/12 on clear diet with supplement slight improvement today willing to try diet
Objective
Data Reviewed
Laboratory Data:
Laboratory Results
07/13/23 04:51
07/13/23 04:51
Laboratory Results
PT 15.4 Sec (11.4-14.6) H 07/10/23 12:28
INR 1.24 07/10/23 12:28
APTT 29.9 Sec (23.4-35.0) 07/10/23 12:28
Total Bilirubin 0.4 mg/dl (0.2-1.3) 07/13/23 04:51
AST 15 U/L (17-59) L 07/13/23 04:51
ALT < 10 U/L (0-50) 07/13/23 04:51
Alkaline Phosphatase 132 U/L (38-126) H 07/13/23 04:51
Lipase 23 U/L (23-300) 07/10/23 12:28
Vital Signs and I&O:
Vital Signs
Temp Pulse Resp BP Pulse Ox
97.8 F 72 18 146/71 98
07/13/23 07:00 07/13/23 07:00 07/13/23 07:00 07/13/23 07:00 07/13/23 07:00
I&O
07/12/23 07/13/23 07/14/23
06:59 06:59 06:59
Intake Total 1160 / 1160 2160 / 2160
Output Total 1575 / 1575 970 / 970
Balance -415 / -415 1190 / 1190
Physical Exam
Physical Exam
HEENT: Anicteric, Moist mucous membranes and Other (thin appearing)
Cardiology: Normal Sinus Rhythm
Pulmonary: Clear
GI: Soft, Non Distended, Tender (mild diffuse) and Other (rectal tube out )
Extremities: No Edema
Neuro: Non Focal
[2023-07-13] MEDS: QUESTRAN LIGHT/PREVALITE 4 GRAMS PO ×2 (09:46→19:40)
[2023-07-13] MEDS: DILAUDID 0.5 MG IV ×2 (09:53→18:00)
--- NOTE | 2023-07-13 09:56 | PTOTSP ---
Speech Language Pathology
Pt seen for dysphagia tx. Sitting upright in chair upon arrival. present at bedside. GI had just spoken with pt re: diet upgrade and plans on regular solids/thin liquids. Pt reported that it was hard to swallow at home, stating it felt as
though his mouth and throat were 'tight.' Seen with P.O. trials of thin liquids, puree, and regular solids. Adequate mastication, bolus formation, and A-P transit noted with no oral residue. Wet voice and cough with consecutive sips of thin
liquids only. No cough with single sips. Reported sensation noted at home with difficulty swallowing is no longer present. Therefore, suspect it was related to thrush.
Recommend:
(1) Regular solids/thin liquids
(2) Aspiration precautions: sit upright, single sips, slow rate
(3) Meds whole in puree
(4) JEWELRY CUTTER to continue to follow
[2023-07-13 11:00] VITALS: BP 127/60
[2023-07-13 11:39] LABS: Glucose - Point of Care 110 mg/dl (70-99)
--- NOTE | 2023-07-13 11:50 | W.PN.HOSP.TC ---
Today's Communication/Plan
-
monitor diet tolerance
monitor stool output
GI recs
replete kcl
IVF for now
Assessment / Plan
Assessment / Plan
General: No Apparent Distress and Appears Chronically Ill
HEENT: Anicteric and Moist mucous membranes
Respiratory: Clear and Non Labored Respirations; No Wheezes
Cardiac: S1/S2, Regular Rhythm and Other (Right chest wall port)
GI: Soft, Non Tender and Non Distended
Genito-urinary: No Bar
Musculoskeletal: No Edema
Neuro: Awake, Alert, Oriented and AO x 3
Psych: Calm and Intact Judgment/Insight
Abdominal pain, diarrhea likely secondary to pancolitis
Could be secondary to chemo
neg noro, neg cdiff; negative for crypto and Giardia
Gi following
Diet advanced
IVF +KCL
pain control
Started on cholestyramine, Pepto-Bismol
monitor Qtc while on zofran and fluconozole
Stools are starting to form. Rectal tube taken out.
Dysphagia likely secondary to candidal esophagitis
Denies Odynophagia
Thrush on exam
Nystatin
IV fluconazole. Qtc 441
GI following
speech following. Per them patient can be put on solids once okay from colitis standpoint. If does not do well then will need video swallow study
Failure to thrive, dehydration
will see how patient does with medical treatment
Gets intermittent fluids outpatient
Mild chest discomfort, suspect secondary esophagitis
trop neg
monitor
Mild hyponatremia
monitor improving
Metastatic colon cancer
Recently diagnosed in April
Currently on chemo, follows with Dr. Kline and [facility]
Oncology following;
Hypokalemia
Replete
Essential hypertension
Continue lisinopril
Diabetes mellitus
A1c 8.4
ISS;accuchecks
hold janumet
Thrombocytopenia secondary to malignancy
Monitor
History of TIA
Currently without any deficits
On aspirin
DVT prophylaxis
Lovenox
Full code, confirmed on admission
d/w with spouse at bedside
Anticipated Discharge: 24 - 48 hours
Subjective/Interval History
-
Date of Service: July 13, 2023
States of abdominal pain
States stools are starting to form
Rectal tube taken out
Objective Data
-
Labs:
Laboratory Results
07/13/23
04:51
WBC 7.9
Hgb 8.7 L
Hct 27.2 L
Plt Count 112 L
Sodium 132 L
Potassium 3.0 L
Chloride 101
Carbon Dioxide 22
BUN 4 L
Creatinine 0.7
Glucose 86
Calcium 8.6
Total Bilirubin 0.4
AST 15 L
ALT < 10
Alkaline Phosphatase 132 H
Vital Signs:
Vital Signs
Temp Pulse Resp BP Pulse Ox
98.1 F 68 17 127/60 98
07/13/23 11:00 07/13/23 11:00 07/13/23 11:00 07/13/23 11:00 07/13/23 11:00
I&O
07/12/23 07/13/23 07/14/23
06:59 06:59 06:59
Intake Total 1160 / 1160 2160 / 2160
Output Total 1575 / 1575 970 / 970
Balance -415 / -415 1190 / 1190
Data Reviewed
-
Total Time Spent with Patient (in minutes): 55
[2023-07-13] MEDS: PEPTO-BISMOL PO (14:13)
[2023-07-13] MEDS: MYCOSTATIN ORAL SUSPENSION PO (14:13)
[2023-07-13 15:00] VITALS: BP 143/72
[2023-07-13 16:08] LABS: Glucose - Point of Care 121 mg/dl (70-99)
--- NOTE | 2023-07-13 16:57 | CM ---
met with patient at beside.he is now on regualr/thins diet,cont ivf.has abd pain/diarrhea.plan is dc home without hc vs vn if needed.
[2023-07-13] MEDS: VITAMIN B-12 1000 MCG PO (17:46)
[2023-07-13] MEDS: LOVENOX 40 MG SC (17:46)
[2023-07-13] MEDS: DIFLUCAN 200 MG 100 IV (17:46)
--- NOTE | 2023-07-13 18:35 | W.PN.UPDATE ---
Update Note
Progress Note Update
billing purposes
[2023-07-13] MEDS: LIPITOR 10 MG PO (21:02)
[2023-07-13] MEDS: LOW STRENGTH ASPIRIN 81 MG PO (21:02)
[2023-07-13 21:28] LABS: Glucose - Point of Care 144 mg/dl (70-99)
[2023-07-13] MEDS: MYLICON 80 MG PO (21:28)
[2023-07-13 23:05] VITALS: BP 145/54
[2023-07-14 05:13] LABS: Hematocrit 27.2 % (39.0-52.0); Hemoglobin 8.9 g/dL (13.0-18.0); Mean Corp Hgb Conc. 32.7 g/dL (33.0-37.0); Mean Corpuscular Hgb 24.7 pg (27.0-31.0); Mean Corpuscular Volume 75.6 fL (80.0-94.0); Mean Platelet Volume 10.6 fL (7.4-10.4); Platelet Count 126 10^3/uL (130-400); Red Cell Dist. Width 26.5 % (11.5-14.5); White Blood Cell Count 8.7 10^3/uL (4.8-10.8)
[2023-07-14 05:28] VITALS: BMI 20.5
[2023-07-14 05:42] LABS: ALT (SGPT) < 10 U/L (0-50); AST (SGOT) 15 U/L (17-59); Albumin 2.1 g/dl (3.5-5.0); Alkaline Phosphatase 124 U/L (38-126); Blood Urea Nitrogen 3 mg/dl (9-20); Calcium 8.6 mg/dl (8.4-10.2); Carbon Dioxide 25 mmol/L (22-30); Chloride 101 mmol/L (98-107); Estimated Creatinine Clearance 103 ml/min; Glucose 114 mg/dl (70-99); Potassium 3.7 mmol/L (3.5-5.1); Sodium 131 mmol/L (135-145); Total Bilirubin 0.3 mg/dl (0.2-1.3); Total Protein 4.2 g/dl (6.3-8.2); eGFR > 60.00
[2023-07-14 07:05] LABS: Absolute Neutrophils -Man Diff 7.3 10^3/uL (1.4-6.5); Band Neutrophils 1 % (0-3); Lymphocytes 9 % (20-51); Segmented Neutrophils 84 % (42-75)
[2023-07-14 07:06] LABS: Anisocytosis Slight; Eosinophils 1 % (0-6); Hypochromasia Slight; Metamyelocytes 1 % (-); Monocytes 4 % (2-9); Normal RBC Morphology No; Ovalocytes Slight; Platelets Checked Yes; Total Cells Counted 100
[2023-07-14 07:40] LABS: Glucose - Point of Care 156 mg/dl (70-99)
[2023-07-14 07:42] VITALS: BP 147/76
[2023-07-14 07:49] LABS: Magnesium 1.7 mg/dl (1.6-2.3)
[2023-07-14] MEDS: NOVOLOG FLEXPEN-LOW RESISTANCE 1 UNITS SC ×3 (08:10→17:07)
[2023-07-14] MEDS: PROTONIX 40 MG PO (08:11)
[2023-07-14] MEDS: MYCOSTATIN ORAL SUSPENSION 5 ML PO ×3 (08:11→17:08)
[2023-07-14] MEDS: QUESTRAN LIGHT/PREVALITE 4 GRAMS PO ×2 (08:11→22:54)
[2023-07-14] MEDS: PEPTO-BISMOL 2 TABLET PO ×3 (08:11→17:08)
[2023-07-14] MEDS: DILAUDID 0.5 MG IV ×3 (08:17→22:51)
[2023-07-14] MEDS: SODIUM PHOSPHATE 255 MEQ IV (09:13)
--- NOTE | 2023-07-14 10:22 | W.PN.HOSP.TC ---
Today's Communication/Plan
-
replete phosp
start lomotil
monitor diet tolerance
Assessment / Plan
Assessment / Plan
General: No Apparent Distress and Appears Chronically Ill
HEENT: Anicteric and Moist mucous membranes
Respiratory: Clear and Non Labored Respirations; No Wheezes
Cardiac: S1/S2, Regular Rhythm and Other (Right chest wall port)
GI: Soft, Non Tender and Non Distended
Genito-urinary: No Bar
Musculoskeletal: No Edema
Neuro: Awake, Alert, Oriented and AO x 3
Psych: Calm and Intact Judgment/Insight
Abdominal pain, diarrhea likely secondary to pancolitis
Could be secondary to chemo
neg noro, neg cdiff; negative for crypto and Giardia and shiga negative.
stool studies negtive
Gi following
Diet advanced
IVF +KCL
pain control
Started on cholestyramine, Pepto-Bismol and added lomotil
monitor Qtc while on zofran and fluconozole
Stools are starting to form. Rectal tube taken out.
Dysphagia likely secondary to candidal esophagitis
Denies Odynophagia
Thrush on exam
Nystatin
IV fluconazole. Qtc 441
GI following
speech following. Per them patient can be put on solids once okay from colitis standpoint. If does not do well then will need video swallow study
Failure to thrive, dehydration
will see how patient does with medical treatment
Gets intermittent fluids outpatient
Mild chest discomfort, suspect secondary esophagitis
trop neg
monitor
Mild hyponatremia
monitor improving
Hypophosphatemia
replete/monitor
Metastatic colon cancer
Recently diagnosed in April
Currently on chemo, follows with Dr. Kline and [facility]
Oncology following;
Hypokalemia
Replete
Essential hypertension
Continue lisinopril
Diabetes mellitus
A1c 8.4
ISS;accuchecks
hold janumet
Thrombocytopenia secondary to malignancy
Monitor
History of TIA
Currently without any deficits
On aspirin
DVT prophylaxis
Lovenox
Full code, confirmed on admission
d/w with spouse at bedside on 07/12
Anticipated Discharge: Within 24 hours
Subjective/Interval History
-
Date of Service: July 14, 2023
States having formed stools
states of bloating/feeling gassy
Objective Data
-
Labs:
Laboratory Results
07/14/23
04:54
WBC 8.7
Hgb 8.9 L
Hct 27.2 L
Plt Count 126 L
Sodium 131 L
Potassium 3.7
Chloride 101
Carbon Dioxide 25
BUN 3 L
Creatinine 0.6 L
Glucose 114 H
Calcium 8.6
Total Bilirubin 0.3
AST 15 L
ALT < 10
Alkaline Phosphatase 124
Vital Signs:
Vital Signs
Temp Pulse Resp BP Pulse Ox
97.8 F 75 16 147/76 99
07/14/23 07:42 07/14/23 07:42 07/14/23 07:42 07/14/23 07:42 07/14/23 07:42
I&O
07/13/23 07/14/23 07/15/23
06:59 06:59 06:59
Intake Total 2160 / 2160 2090 / 2090 960 / 960
Output Total 970 / 970 600 / 600
Balance 1190 / 1190 1490 / 1490 960 / 960
--- NOTE | 2023-07-14 11:33 | W.PN.ONC ---
Addendum entered and electronically signed by Wisam Contreras DO 07/14/23 11:47:
Patient examined and chart reviewed independently. Agree with the impression and plan as outlined by YARDMASTER below. Patient states that his diarrhea has significantly improved. Rectal trumpet removed. Continue supportive care and advance diet.
Follow-up to discuss virtual plans for treatment with Dr. Kline.
Original Note:
Today's Communication / Plan
-
07/13 WBC 8.7, Hgb 8.9, PLT 126
Monitor CBC with diff daily
Stool cultures are negative for infectious process
Continue diarrhea management with cholestyramine, Pepto-Bismol and the addition of Lomotil and Imodium
Treatment of candidal esophagitis/oral thrush with Diflucan, Nystatin per primary team
Consider pre-medicating patient prior to eating meals for comfort
Supportive care, emotional support
Diet as tolerated
Recommend Olanzapine 2.5 daily for appetite once tolerating PO
Further treatment discussion to be determined. Follow up with Dr. Kline is arranged on 07/20 in [place].
Impression
Impression
Ascending colon cancer, primary not resected, metastatic to lung and liver, stable on FOLFIRI
Persistent watery diarrhea
Abdominal pain
Pancolitis on CT scan
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
Anorexia, FTT
Candidal esophagitis
Subjective/Objective
Subjective/Objective
patient is resting comfortably. diarrhea has slowed down. rectal trumpet has been removed.
Vital Signs:
Vital Signs
Temp Pulse Resp BP Pulse Ox
97.8 F 75 16 147/76 99
07/14/23 07:42 07/14/23 07:42 07/14/23 07:42 07/14/23 07:42 07/14/23 07:42
physical exam:
aaox3, drowsy, arouses to voice
pallor, appears chronically ill
Right CW port
Lab Results:
Laboratory Data
WBC 8.7 10^3/uL (4.8-10.8) 07/14/23 04:54
Hgb 8.9 g/dL (13.0-18.0) L 07/14/23 04:54
Plt Count 126 10^3/uL (130-400) L 07/14/23 04:54
PT 15.4 Sec (11.4-14.6) H 07/10/23 12:28
INR 1.24 07/10/23 12:28
APTT 29.9 Sec (23.4-35.0) 07/10/23 12:28
eGFR > 60.00 07/14/23 04:54
[2023-07-14 11:34] LABS: Glucose - Point of Care 178 mg/dl (70-99)
[2023-07-14] MEDS: KCL 1020 MEQ IV (13:30)
[2023-07-14] MEDS: LOMOTIL 1 TABLET PO (15:01)
[2023-07-14 15:32] VITALS: BP 123/72
[2023-07-14 16:55] LABS: Glucose - Point of Care 171 mg/dl (70-99)
[2023-07-14] MEDS: LOVENOX 40 MG SC (17:07)
[2023-07-14] MEDS: VITAMIN B-12 1000 MCG PO (17:08)
[2023-07-14] MEDS: DIFLUCAN 200 MG PO (17:08)
[2023-07-14 21:22] LABS: Glucose - Point of Care 175 mg/dl (70-99)
[2023-07-14 23:28] VITALS: BP 134/76
[2023-07-15] MEDS: LOW STRENGTH ASPIRIN 81 MG PO (00:12)
[2023-07-15] MEDS: MYCOSTATIN ORAL SUSPENSION 5 ML PO ×3 (00:12→12:09)
[2023-07-15] MEDS: LOMOTIL 1 TABLET PO ×2 (00:13→07:37)
[2023-07-15] MEDS: LIPITOR 10 MG PO (00:13)
[2023-07-15] MEDS: PEPTO-BISMOL 2 TABLET PO ×3 (00:13→12:09)
[2023-07-15] MEDS: KCL 1020 MEQ IV (01:06)
[2023-07-15 05:31] VITALS: BMI 20.9
[2023-07-15 07:30] VITALS: BP 143/73
[2023-07-15] MEDS: PROTONIX 40 MG PO (07:37)
[2023-07-15] MEDS: QUESTRAN LIGHT/PREVALITE 4 GRAMS PO (07:37)
[2023-07-15 07:44] LABS: Glucose - Point of Care 110 mg/dl (70-99)
[2023-07-15] MEDS: NOVOLOG FLEXPEN-LOW RESISTANCE SC (07:44)
[2023-07-15] MEDS: DILAUDID 0.5 MG IV (08:32)
[2023-07-15] MEDS: IMODIUM 2 MG PO (11:44)
[2023-07-15 11:46] LABS: Glucose - Point of Care 208 mg/dl (70-99)
[2023-07-15] MEDS: NOVOLOG FLEXPEN-LOW RESISTANCE 2 UNITS SC (11:46)
[2023-07-15 12:22] LABS: Blood Urea Nitrogen 2 mg/dl (9-20); Calcium 8.3 mg/dl (8.4-10.2); Carbon Dioxide 25 mmol/L (22-30); Chloride 103 mmol/L (98-107); Estimated Creatinine Clearance 105 ml/min; Glucose 174 mg/dl (70-99); Potassium 3.7 mmol/L (3.5-5.1); Sodium 129 mmol/L (135-145); eGFR > 60.00
--- NOTE | 2023-07-15 12:52 | W.PN.HOSP.TC ---
Today's Communication/Plan
-
dc home
Assessment / Plan
Assessment / Plan
General: No Apparent Distress and Appears Chronically Ill
HEENT: Anicteric and Moist mucous membranes
Respiratory: Clear and Non Labored Respirations; No Wheezes
Cardiac: S1/S2, Regular Rhythm and Other (Right chest wall port)
GI: Soft, Non Tender and Non Distended
Genito-urinary: No Bar
Musculoskeletal: No Edema
Neuro: Awake, Alert, Oriented and AO x 3
Psych: Calm and Intact Judgment/Insight
Abdominal pain, diarrhea likely secondary to pancolitis
Could be secondary to chemo
neg noro, neg cdiff; negative for crypto and Giardia and shiga negative.
stool studies negative
Gi following
Diet advanced
pain control
Started on cholestyramine, Pepto-Bismol and added lomotil and imodium
hold zofran while on fluconozole
Stools are starting to form. Rectal tube taken out.
Dysphagia likely secondary to candidal esophagitis
Denies Odynophagia
Thrush on exam
Nystatin
Po fluconazole. Qtc 441
Failure to thrive, dehydration
will see how patient does with medical treatment
Gets intermittent fluids outpatient
Mild chest discomfort, suspect secondary esophagitis
trop neg
monitor
Mild chronic hyponatremia
Cont to monitor.
Hypophosphatemia
replete/monitor
Metastatic colon cancer with hepatic lesions and pulmonary lesions
Severe protein calorie malnutrition of chronic illness due to cancer
Recently diagnosed in April
Currently on chemo, follows with Dr. Kline and [facility]
Oncology following;
Hypokalemia
Replete
Essential hypertension
Continue lisinopril
Diabetes mellitus
A1c 8.4
ISS;accuchecks
restart janumet
Thrombocytopenia secondary to malignancy
Monitor
History of TIA
Currently without any deficits
On aspirin
DVT prophylaxis
Lovenox
Full code, confirmed on admission
More than 30 minutes spent in discharge including
Final examination of the patient
Summarizing hospital stay
Instructions for continuing care to all relevant caregivers
Preparation of discharge records, prescriptions, and referral forms
Total time spent (in minutes): 45
Anticipated Discharge: Today
Subjective/Interval History
-
date of Service: July 15, 2023
States improvement in abdominal discomfort
States improvement in diarrhea
Objective Data
-
Labs:
Laboratory Results
07/15/23
11:18
Sodium 129 L
Potassium 3.7
Chloride 103
Carbon Dioxide 25
BUN 2 L
Creatinine 0.5 L
Glucose 174 H
Calcium 8.3 L
Vital Signs:
Vital Signs
Temp Pulse Resp BP Pulse Ox
98.3 F 72 16 143/73 97
07/15/23 07:30 07/15/23 07:30 07/15/23 07:30 07/15/23 07:30 07/15/23 07:30
I&O
07/14/23 07/15/23 07/16/23
06:59 06:59 06:59
Intake Total 2089 / 2089 2900 / 2900
Output Total 600 / 600 940 / 940
Balance 1490 / 1490 1960 / 1960
--- NOTE | 2023-07-15 13:06 | W.DCSUMMARY ---
Discharge Summary
Discharge Data
Date of Admission: 07/10/23
Date of Discharge: 07/15/23
-
Pending Results: No
Hospital Course
68 male past medical history of colon cancer with metastasis of the liver and lungs, hypertension, diabetes, history of TIA who is presenting from home with abdominal pain and diarrhea. CT scan abdomen suspicion for mild pancolitis. Fluid
attenuation to the cholecystectomy diarrheal illness. Mild wall thickening of distal esophagus suggesting esophagitis. Gastroenterology was consulted. Oncology was consulted. Patient was started on nystatin and fluconazole. Stool studies were
negative. Patient was started on cholestyramine, Lomotil and Imodium and Bismuth. Patient with improvement in diarrhea. Rectal tube was removed. IV fluid discontinued. Electrolytes repleted. Patient was tolerating diet. Plan will be to switch
chemotherapy as outpatient. Patient has outpatient follow-up with Dr. Kline on 07/21/23.
Discharge Plan
-
Patient Disposition: Home (Routine Discharge)
Discharge Diagnosis/Procedures: Abdominal pain, diarrhea likely secondary to pancolitis likely due to chemotherapy
Dysphagia likely secondary to candidal esophagitis
Dehydration
Hypokalemia
Hypophosphatemia
Condition: Fair
Diet: Low Residue
Activity: With assistance and As tolerated
Blood Work: CBC and BMP in 1 week via primary doctor
Referrals:
Carin Kline DO [Family Provider] - 07/21/23
Prescriptions:
New
fluconazole 200 mg Tablet
200 mg PO QPM 9 Days Qty: 9 0RF
pantoprazole 40 mg Tablet,Delayed Release (Dr/Ec)
40 mg PO DAILY 30 Days Qty: 30 0RF
bismuth subsalicylate [[place] Bismuth] 262 mg Tablet,Chewable
2 tab PO QID 14 Days Qty: 112 0RF
nystatin 100,000 unit/mL Suspension
5 ml PO QID 7 Days Qty: 140 0RF
Continued
Fish Oil-Vit D3 1 EACH tablet,chewable
1 tab PO QPM
Janumet 50-1,000 mg Tablet
1 tab PO BID
simvastatin 10 mg Tablet
10 mg PO HS
loperamide 2 mg Tablet
2 mg PO Q4H PRN (Reason: DIARRHEA)
aspirin 81 mg Tablet,Chewable
81 mg PO HS
lisinopril 20 MG tablet
20 mg PO HS
cyanocobalamin (vitamin B-12) 1,000 MCG tablet
1,000 mcg PO QPM
lorazepam 0.5 mg Tablet
0.5 mg PO BIDPRN PRN (Reason: anxiety)
Medical Marjiuana
1 gummy PO DAILY
Changed
diphenoxylate-atropine [Lomotil] 2.5-0.025 mg Tablet
1 tab PO TID @ 0800,1200,1700 14 Days Qty: 42 0RF
Cholestyramine Light 4 gram Powder
4 g PO BID 30 Days Qty: 231 0RF
Held
ondansetron 8 mg Tablet,Disintegrating
8 mg PO [id number] PRN (Reason: NASUEA )
Hold Instructions: Resume on 07/24/23. Hold while on fluconazole
Discharge Orders:
Discharge Patient (As Directed); Ordered 07/15/23
Ordered By: Ford Tucker
Discharge Date and Time
Print Language: AZERBAIJANI
--- NOTE | 2023-07-15 13:59 | W.PN.ONC ---
Today's Communication / Plan
-
cont supportive care
optimize nutrition
f/u as outpt w/ Dr. Kline to discuss continued management
Impression
Impression
Ascending colon cancer, primary not resected, metastatic to lung and liver, stable on FOLFIRI
Persistent watery diarrhea - improved
Abdominal pain
Pancolitis on CT scan
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
Anorexia, FTT
Candidal esophagitis
Plan
Plan
1. Diarrhea - improved
-as per GI
2. Colorectal cancer - f/u w/ Dr. Kline as outpt for continued management
Subjective/Objective
Subjective/Objective
Feels better, less diarrhea
Vital Signs:
Vital Signs
Temp Pulse Resp BP Pulse Ox
98.3 F 72 16 143/73 97
07/15/23 07:30 07/15/23 07:30 07/15/23 07:30 07/15/23 07:30 07/15/23 07:30
Lab Results:
Laboratory Data
WBC 8.7 10^3/uL (4.8-10.8) 07/14/23 04:54
Hgb 8.9 g/dL (13.0-18.0) L 07/14/23 04:54
Plt Count 126 10^3/uL (130-400) L 07/14/23 04:54
PT 15.4 Sec (11.4-14.6) H 07/10/23 12:28
INR 1.24 07/10/23 12:28
APTT 29.9 Sec (23.4-35.0) 07/10/23 12:28
eGFR > 60.00 07/15/23 11:18
Exam: unchanged
[2023-07-15 15:30] VITALS: BP 136/72
--- NOTE | 2023-07-15 15:55 | CM ---
Reviewed chart, spoke with patient and his who were at bedside. Patient denied wanting VN services. He was agreeable to discharge. IMM completed.
Plan: Case management will continue to follow and assist with discharge planning. Patient returning home no needs.
--- NOTE | 2023-07-15 16:04 | VATNOTE ---
right subq port deaccessed per protocol. brisk blood return noted prior to.
== END 2023-07-15 18:06 | disposition home or self-care (01) | DRG 393 ==
LOC: 3 WEST ACU 15:50
PROVIDERS: ADMITTING PHYSICIAN Internal Medicine; ATTENDING PHYSICIAN Hospitalist; CONSULT PHYSICIAN Internal Medicine; EMERGENCY PHYSICIAN Emergency Medicine; FAMILY PHYSICIAN Internal Medicine Hematology & Oncology; OTHER PHYSICIAN Internal Medicine Hematology & Oncology
DX: K52.1 Toxic gastroenteritis and colitis (principal); E43 Unspecified severe protein-calorie malnutrition; C18.2 Malignant neoplasm of ascending colon; E87.1 Hypo-osmolality and hyponatremia; R64 Cachexia; B37.81 Candidal esophagitis; B37.0 Candidal stomatitis; C78.7 Secondary malignant neoplasm of liver and intrahepatic bile duct; C78.00 Secondary malignant neoplasm of unspecified lung; R62.7 Adult failure to thrive; E86.0 Dehydration; I10 Essential (primary) hypertension; Z82.49 Family history of ischemic heart disease and other diseases of the circulatory system; E11.649 Type 2 diabetes mellitus with hypoglycemia without coma; Z79.84 Long term (current) use of oral hypoglycemic drugs; R63.0 Anorexia; K57.30 Diverticulosis of large intestine without perforation or abscess without bleeding; Z68.20 Body mass index [BMI] 20.0-20.9, adult; E87.6 Hypokalemia; D69.59 Other secondary thrombocytopenia; E83.39 Other disorders of phosphorus metabolism; K52.9 Noninfective gastroenteritis and colitis, unspecified; T45.1X5A Adverse effect of antineoplastic and immunosuppressive drugs, initial encounter
CPT/HCPCS: 71260; 74177; 80048; 80053; 82378; 82728; 82962; 83036; 83540; 83550; 83690; 83735; 84100; 84484; 85025; 85610; 85730; 87045; 87046; 87324; 87328; 87329; 87427; 87449; 87798; 89055; 92526; 92610; 93005; 96361; 96374; 96375; 96376; 97163; 97166; 99285; Q9967

== ENCOUNTER → 2023-07-18 11:20 | Outpatient (REF) | payer OTHER, SELFPAY ==
[2023-07-18 11:58] LABS: % Basophils 1.3 % (0-2); % Immature Granulocytes 6.4 % (0-0.5); % Lymphocytes 10.1 % (20.5-51.1); % Monocytes 10.5 % (1.7-9.3); % Neutrophils 70.7 % (42.2-75.2); Absolute Basophils 0.2 10^3/uL (0-0.2); Absolute Eosinophils 0.1 10^3/uL (0-0.7); Absolute Immature Granulocytes 0.8 10^3/uL (0-0.05); Absolute Lymphocytes 1.3 10^3/uL (1.2-3.4); Absolute Monocytes 1.3 10^3/uL (0.1-0.6); Absolute Neutrophils 8.8 10^3/uL (1.4-6.5); Hematocrit 32.6 % (39.0-52.0); Hemoglobin 10.2 g/dL (13.0-18.0); Mean Corp Hgb Conc. 31.3 g/dL (33.0-37.0); Mean Corpuscular Hgb 24.7 pg (27.0-31.0); Mean Corpuscular Volume 78.9 fL (80.0-94.0); Nucleated Red Blood Cells % 0 % (-); Platelet Count 281 10^3/uL (130-400); Red Blood Cell Count 4.13 10^6/uL (4.70-6.10); Red Cell Dist. Width 28.4 % (11.5-14.5); White Blood Cell Count 12.4 10^3/uL (4.8-10.8)
[2023-07-18 12:00] LABS: ALT (SGPT) 15 U/L (0-50); AST (SGOT) 21 U/L (17-59); Albumin 2.5 g/dl (3.5-5.0); Alkaline Phosphatase 161 U/L (38-126); Blood Urea Nitrogen 9 mg/dl (9-20); Calcium 9.2 mg/dl (8.4-10.2); Carbon Dioxide 27 mmol/L (22-30); Chloride 98 mmol/L (98-107); Glucose 233 mg/dl (70-99); Potassium 3.7 mmol/L (3.5-5.1); Sodium 134 mmol/L (135-145); Total Bilirubin 0.4 mg/dl (0.2-1.3); Total Protein 4.8 g/dl (6.3-8.2); eGFR > 60.00
== END ==
LOC: OIDL 11:20
PROVIDERS: ATTENDING PHYSICIAN Internal Medicine Hematology & Oncology
DX: C18.9 Malignant neoplasm of colon, unspecified (principal); D50.0 Iron deficiency anemia secondary to blood loss (chronic)
CPT/HCPCS: 80053; 85025

== ENCOUNTER 2023-07-30 11:15 | Emergency (ER) | payer OTHER, SELFPAY ==
[2023-07-30 11:19] VITALS: BP 137/79
[2023-07-30 11:20] VITALS: BP 137/79
[2023-07-30 11:47] VITALS: BMI 21.6
[2023-07-30 11:58] LABS: % Basophils 0.6 % (0-2); % Eosinophils 1.1 % (0-6); % Immature Granulocytes 0.9 % (0-0.5); % Lymphocytes 7.1 % (20.5-51.1); % Monocytes 4.7 % (1.7-9.3); % Neutrophils 85.6 % (42.2-75.2); Absolute Basophils 0.1 10^3/uL (0-0.2); Absolute Eosinophils 0.2 10^3/uL (0-0.7); Absolute Immature Granulocytes 0.2 10^3/uL (0-0.05); Absolute Lymphocytes 1.3 10^3/uL (1.2-3.4); Absolute Monocytes 0.9 10^3/uL (0.1-0.6); Absolute Neutrophils 16.2 10^3/uL (1.4-6.5); Hematocrit 31.6 % (39.0-52.0); Mean Corp Hgb Conc. 31.6 g/dL (33.0-37.0); Mean Corpuscular Volume 82.3 fL (80.0-94.0); Mean Platelet Volume 10.2 fL (7.4-10.4); Nucleated Red Blood Cells % 0 % (-); Platelet Count 209 10^3/uL (130-400); Red Blood Cell Count 3.84 10^6/uL (4.70-6.10); Red Cell Dist. Width 29.3 % (11.5-14.5); White Blood Cell Count 18.9 10^3/uL (4.8-10.8)
[2023-07-30 12:08] LABS: ALT (SGPT) 28 U/L (0-50); AST (SGOT) 34 U/L (17-59); Albumin 2.5 g/dl (3.5-5.0); Alkaline Phosphatase 285 U/L (38-126); Blood Urea Nitrogen 12 mg/dl (9-20); Calcium 8.7 mg/dl (8.4-10.2); Carbon Dioxide 29 mmol/L (22-30); Chloride 102 mmol/L (98-107); Estimated Creatinine Clearance 106 ml/min; Glucose 193 mg/dl (70-99); Potassium 2.9 mmol/L (3.5-5.1); Sodium 137 mmol/L (135-145); Total Bilirubin 0.4 mg/dl (0.2-1.3); Total Protein 5.1 g/dl (6.3-8.2); eGFR > 60.00
[2023-07-30 13:15] LABS: Microcytosis 2+
[2023-07-30 13:16] LABS: Anisocytosis 2+; Hypochromasia 1+; Ovalocytes 1+
[2023-07-30 13:17] LABS: Normal RBC Morphology No
[2023-07-30] MEDS: DILAUDID 0.5 MG IV (13:56)
[2023-07-30] MEDS: NSS 500 IV (13:57)
[2023-07-30] MEDS: ZOFRAN 4 MG IV (13:58)
[2023-07-30 14:06] VITALS: BP 110/57
[2023-07-30 15:22] VITALS: BP 143/76
[2023-07-30 16:00] VITALS: BP 121/66
--- NOTE | 2023-07-30 16:15 | ED.GENMED ---
History of Present Illness
General
Chief Complaint: Bowel Problem
Source: patient, records, spouse and family
Exam Limitations: none
Time Seen by Provider: 07/30/23 11:25
Nursing documentation reviewed up to this point in time: agreed with
Travel History
Have you had any contact with someone who has COVID-19?: No
Do you have any symptoms of coronavirus? Fever > 100 degrees, chills, cough, shortness of breath, sore throat, loss of taste or smell, muscle aches, or headache?: No
History of Present Illness
History of Present Illness:
Patient is a 68-year-old male with an aggressive metastatic colon cancer who presents with difficulty having a bowel movement. Patient is complaining of rectal pain and abdominal pain. Patient was recently admitted for diarrhea. Patient denies
fever or chills. Patient denies nausea or vomiting.
Past History
Past History
ED Past Medical History: Cancer, CVA, HTN, Hypercholesterolemia and NIDDM
ED Past Surgical History: Appendectomy, Orthopedic, Tonsilectomy and Other (Bilateral knee arthroscopies in the past )
Social History
Tobacco: Other (Occasional cigar smoker)
Alcohol: Occasional
Drug: Marijuana (Medical)
Personal:
Living: with family
Employment: Employed
Family History
Family History: Early CAD (Patient's father and mother both of coronary artery disease ); Negative Diabetes, Hypertension, Asthma, Cancer or Sudden
Review of Systems
Review of Systems
All Other Systems: ROS reviewed and negative except as documented in HPI and ROS
Constitutional: Reports fatigue; Denies fever or chills
EENT: Reports no symptoms
Respiratory: Reports no symptoms
Cardiac: Reports no symptoms
ABD/GI: Reports abdominal pain, constipated and anorexia; Denies nausea, vomiting, bloody stools or black stools
: Reports no symptoms
Musculoskeletal: Reports no symptoms
Skin: Reports no symptoms
Neurological: Reports no symptoms
Psychiatric: Reports no symptoms
Phy Exam
Physical Exam
Physical Exam:
Physical Exam
General: mild to moderate distress, alert and appropriate, appears chronically ill, well hydrated
HENT: Normocephalic, supple with no lymphadenopathy, no thyromegaly
Eyes: Clear sclera, conjuctiva without injection
Heart: Regular rhythm and rate. No S3, S4. No murmur.
Lungs: No respiratory distress, no stridor, lung sounds clear and equal bilaterally
Abdomen: Soft, mild diffuse tenderness without guarding or rebound, no organomegaly, no CVA tenderness, BS diminished. Rectal shows poor sphincter tone and initially a large amount of solid stool that went to liquid stool
that is Hemoccult negative
Neuro: Alert and usual mental status, CN II - XII intact, no motor focality, no cerebellar dysfunction
Skin: no rash
Psychiatric: well kept. interactive and cooperative
Extremities: No edema, cyanosis, tenderness
Course
Orders/Labs/Results
Orders:
Orders
07/30/23 11:49
CBC/With Diff [Complete Blood Count/With Diff] Urgent
Comprehensive Metabolic Panel Urgent
07/30/23 13:43
CR Abdomen - 1 View Urgent
Comment:
Reason For Exam: Constipation pain rectally
07/30/23 13:44
CT Abd/Pel (IV only)-DH only Urgent
Comment:
Reason For Exam: History of colon cancer with rectal pain
0.9% Sodium Chloride 500 ml [Nss] 500 ml IV BOLUS
HYDROmorphone [Dilaudid] 0.5 mg IV NOW STA
Ondansetron Injectable [Zofran] 4 mg IV NOW STA
07/30/23 16:15
Potassium Chloride [KCl] 40 meq PO NOW STA
07/30/23 16:36
Heparin Pf [Heparin Lock Flush] 500 unit IV NOW ONE
Abnormal Lab Results
07/30/23
11:49
WBC 18.9 H 10^3/uL
(4.8-10.8)
RBC 3.84 L 10^6/uL
(4.70-6.10)
Hgb 10.0 L g/dL
(13.0-18.0)
Hct 31.6 L %
(39.0-52.0)
MCH 26.0 L pg
(27.0-31.0)
MCHC 31.6 L g/dL
(33.0-37.0)
RDW 29.3 H %
(11.5-14.5)
Abs Immat Gran (auto) 0.2 H 10^3/uL
(0-0.05)
Absolute Neuts (auto) 16.2 H 10^3/uL
(1.4-6.5)
Absolute Monos (auto) 0.9 H 10^3/uL
(0.1-0.6)
Immature Gran % 0.9 H %
(0-0.5)
Neutrophils % 85.6 H %
(42.2-75.2)
Lymphocytes % 7.1 L %
(20.5-51.1)
Potassium 2.9 L mmol/L
(3.5-5.1)
Creatinine 0.4 L mg/dL
(0.7-1.3)
Glucose 193 H mg/dl
(70-99)
Alkaline Phosphatase 285 H U/L
(38-126)
Total Protein 5.1 L g/dl
(6.3-8.2)
Albumin 2.5 L g/dl
(3.5-5.0)
07/30/23 11:49
07/30/23 11:49
Vital Signs
Initial and Last Documented VS:
Initial Vital Signs
Temp Pulse Resp BP Pulse Ox
98 F 80 18 137/79 96
07/30/23 11:19 07/30/23 11:19 07/30/23 11:19 07/30/23 11:19 07/30/23 11:19
Last Documented Vital Signs
Temp Pulse Resp BP Pulse Ox
98 F 78 12 137/79 97
07/30/23 11:19 07/30/23 13:30 07/30/23 11:19 07/30/23 11:20 07/30/23 13:30
*Radiology
Radiology exam reviewed: radiology read reviewed
*Pulse Oximetry
Patient hypoxic: no
*EKG
Interpreted by ED Provider?: NA
*Hearing Screen Coordinator Interpretation
Rate: Hearing Screen Coordinator- N/A
*Critical Care Note
Total Time (30-74mins, 75-104mins- exclusive of procedures): Not Applicable
Update Note
Update Note:
Patient CT multiple metastasis throughout the liver which is the same as in the past. There is moderate bowel wall thickening suggesting proctitis. After discussion with the patient and his daughter. Will use Metamucil start antibiotics and
potassium and will increase pain medication.
ED Attending Note
-
Portions of this chart may have been created with voice recognition software.� Occasional wrong word or��sound alike� substitutions may have occurred due to the inherent limitations of voice recognition software.
Discharge Plan
Departure
Patient Disposition: Home (Routine Discharge)
Date of Disposition: 07/30/23
Time of Disposition: 16:17
Patient with high blood pressure during this ER visit?: No
Condition: Fair
Covid-19: Not Applicable
Discharge Problem:
Proctitis, Diarrhea, Hypokalemia
Instructions: Diarrhea and Travelers' Diarrhea, Adult (DC), Hypokalemia (DC), High Potassium Diet
Prescriptions:
New
amoxicillin-pot clavulanate 875-125 mg tablet
1 tab PO BID Qty: 14 0RF
potassium chloride 20 mEq tablet extended release
20 meq PO BID Qty: 20 0RF
fentanyl 25 mcg/hr patch 72 hour
1 patch transdermal Q72H Qty: 10 0RF
No Action
Fish Oil-Vit D3 1 EACH tablet,chewable
1 tab PO QPM
Janumet 50-1,000 mg Tablet
1 tab PO BID
simvastatin 10 mg Tablet
10 mg PO HS
loperamide 2 mg Tablet
2 mg PO Q4H PRN (Reason: DIARRHEA)
aspirin 81 mg Tablet,Chewable
81 mg PO HS
lisinopril 20 MG tablet
20 mg PO HS
cyanocobalamin (vitamin B-12) 1,000 MCG tablet
1,000 mcg PO QPM
ondansetron 8 mg Tablet,Disintegrating
8 mg PO [id number] PRN (Reason: NASUEA )
Hold Instructions: Resume on 07/24/23. Hold while on fluconazole
lorazepam 0.5 mg Tablet
0.5 mg PO BIDPRN PRN (Reason: anxiety)
Medical Marjiuana
1 gummy PO DAILY
fluconazole 200 mg Tablet
200 mg PO QPM 9 Days Qty: 9 0RF
pantoprazole 40 mg Tablet,Delayed Release (Dr/Ec)
40 mg PO DAILY 30 Days Qty: 30 0RF
bismuth subsalicylate [[place] Bismuth] 262 mg Tablet,Chewable
2 tab PO QID 14 Days Qty: 112 0RF
diphenoxylate-atropine [Lomotil] 2.5-0.025 mg Tablet
1 tab PO TID @ 0800,1200,1700 14 Days Qty: 42 0RF
Cholestyramine Light 4 gram Powder
4 g PO BID 30 Days Qty: 231 0RF
nystatin 100,000 unit/mL Suspension
5 ml PO QID 7 Days Qty: 140 0RF
Referrals:
Norma Buckley PA-C [Family Provider] - Follow up in 5-7 days
Activity Restrictions/Additional Instructions:
Continue present medications. Make sure to get your potassium rechecked this week. Use Metamucil once or twice daily for diarrhea and constipation. Make sure to take plenty of fluids..
Interventions
Interventions:
*Risk Screen - Suicide Last Done: 07/30/23 12:08
*General Assessment Last Done: 07/30/23 11:28
*Neglect/Abuse Screening Last Done: 07/30/23 11:28
ED- Fall Risk Assessment Last Done: 07/30/23 11:56
*ED COVID-19 Vaccine History Last Done: 07/30/23 12:08
BL-Ikyfdo-Opsifajpsh Assessment Last Done: 07/30/23 11:33
Discharge Date and Time
Print Language: SOMALI
[2023-07-30] MEDS: KCL 40 MEQ PO (16:22)
[2023-07-30 17:03] VITALS: BP 99/81
== END 2023-07-30 17:23 | disposition home or self-care (01) ==
LOC: EMR 11:15
PROVIDERS: EMERGENCY PHYSICIAN Emergency Medicine; FAMILY PHYSICIAN Physician Assistant
DX: R19.7 Diarrhea, unspecified (principal); E87.6 Hypokalemia; R10.9 Unspecified abdominal pain; K62.89 Other specified diseases of anus and rectum; R53.83 Other fatigue; C18.9 Malignant neoplasm of colon, unspecified; C78.7 Secondary malignant neoplasm of liver and intrahepatic bile duct; E11.9 Type 2 diabetes mellitus without complications; E78.00 Pure hypercholesterolemia, unspecified; I10 Essential (primary) hypertension; F17.290 Nicotine dependence, other tobacco product, uncomplicated; Z86.73 Personal history of transient ischemic attack (TIA), and cerebral infarction without residual deficits; Z79.82 Long term (current) use of aspirin
CPT/HCPCS: 99285; 96375 ×2; 96361; 96374; 74018; 74177; 80053; 85025; Q9967